=== PATIENT | male | born 1985 | race Caucasian/White ===

== ENCOUNTER → 2016-12-09 | Outpatient (CLI) | payer OTHER ==
[~2016-12-09] MED LIST: 1-ME1LIQ PO; ADDE20XR PO; INDO25 PO; PERC5TAB12 PO; PRED20 PO; RITA20TA PO; XALA0.00 EACH EYE
[2016-12-09 13:10] LABS: MEAN CELL VOLUME 90.9 FL (80.0-100.0); MEAN CORPUSCULAR HEMOGLOBIN 31.7 PG (27.0-34.0); MEAN CORPUSCULAR HGB CONC 34.8 % (32.0-36.0); PLATELET COUNT 230 TH/MM3 (150-450); RED BLOOD COUNT 4.94 MIL/MM3 (4.50-5.90); REVIEW FLAG FINAL; WHITE BLOOD COUNT 9.6 TH/MM3 (4.0-11.0)
[2016-12-09 13:32] LABS: WESTERGREN SEDIMENTATION RATE 2 mm/hr (0-15)
[2016-12-09 13:46] LABS: RHEUMATOID FACTOR TRIGGER LESS THAN 10.0 IU/ML (0.0-14.9)
[2016-12-09 13:50] LABS: ALKALINE PHOSPHATASE 93 U/L (45-117); ALT (GPT) 62 U/L (12-78); ANION GAP 8 MEQ/L (5-15); AST (GOT) 28 U/L (15-37); BICARBONATE 27.7 MEQ/L (21.0-32.0); BLOOD UREA NITROGEN 8 MG/DL (7-18); CHLORIDE 103 MEQ/L (98-107); GLOMERULAR FILTRATION RATE 93 ML/MIN (>89); GLUCOSE,FASTING 81 MG/DL (74-99); SODIUM (NA) 139 MEQ/L (136-145); TOTAL BILIRUBIN ADULT 0.7 MG/DL (0.2-1.0)
[2016-12-09 13:57] LABS: CREATINE KINASE 100 U/L (39-308)
[2016-12-09 14:37] LABS: URIC ACID 6.3 MG/DL (2.6-7.2)
[2016-12-12 11:50] LABS: SM(SMITH) IGG AUTOANTIBODIES ND AI (<1.0 NEGATIVE)
[2016-12-13 13:54] LABS: ANA IFA TITER ND titer (()); ANA SER QL NEGATIVE (NEGATIVE); SJOGRENS AB SSA <1.0 NEG AI (<1.0 NEGATIVE); SJOGRENS AB SSB <1.0 NEG AI (<1.0 NEGATIVE)
[2016-12-14 03:51] LABS: DS DNA AB(CRITHIDIA) NEGATIVE (NEGATIVE); DS DNA AB(CRITHIDIA)TITER ND (<1:10); RHEUMATOID FACTOR 7 IU/mL (<14)
== END ==
LOC: CLAB 12:24
PROVIDERS: ATTEND Allergy & Immunology
DX: M25.50 Pain in unspecified joint (principal); R74.8 Abnormal levels of other serum enzymes
CPT/HCPCS: 36415; 80053; 82085; 82550; 84443; 84550; 85027; 85652; 86038; 86039; 86140; 86147; 86200; 86235; 86255; 86256; 86430; 86431; 86803; 87340

== ENCOUNTER → 2017-04-05 | Outpatient (CLI) | payer OTHER ==
[2017-04-05 11:57] LABS: AUTOMATED NEUTROPHIL # 4.6 TH/MM3 (1.8-7.7); BASOPHIL % 0.6 % (0.0-2.0); EOSINOPHIL # 0.1 TH/MM3 (0-0.4); EOSINOPHIL % 1.7 % (0.0-4.0); HEMATOCRIT 42.8 % (39.0-51.0); HEMO FLAGS DIFF FINAL; LYMPHOCYTE # 1.6 TH/MM3 (1.0-4.8); MEAN CELL VOLUME 91.1 FL (80.0-100.0); MEAN CORPUSCULAR HEMOGLOBIN 31.8 PG (27.0-34.0); MEAN CORPUSCULAR HGB CONC 34.9 % (32.0-36.0); MONO % 9.5 % (0.0-8.0); NEUT % 65.2 % (16.0-70.0); PLATELET COUNT 224 TH/MM3 (150-450); RED CELL DISTRIBUTION WIDTH 13.6 % (11.6-17.2); WHITE BLOOD COUNT 7.1 TH/MM3 (4.0-11.0)
[2017-04-05 12:10] LABS: ALKALINE PHOSPHATASE 86 U/L (45-117); HDL CHOLESTEROL 33.1 MG/DL (40.0-60.0); TOTAL BILIRUBIN ADULT 0.8 MG/DL (0.2-1.0)
[2017-04-05 12:12] LABS: ALT (GPT) 52 U/L (12-78); ANION GAP 8 MEQ/L (5-15); AST (GOT) 35 U/L (15-37); BICARBONATE 28.2 MEQ/L (21.0-32.0); BLOOD UREA NITROGEN 10 MG/DL (7-18); CHLORIDE 104 MEQ/L (98-107); GLOMERULAR FILTRATION RATE 90 ML/MIN (>89); GLUCOSE,FASTING 91 MG/DL (74-99); LDL CHOLESTEROL 113 MG/DL (0-99); POTASSIUM 3.9 MEQ/L (3.5-5.1); SODIUM (NA) 140 MEQ/L (136-145)
== END ==
LOC: CLAB 11:23
PROVIDERS: ATTEND Allergy & Immunology
DX: I10 Essential (primary) hypertension (principal); E78.2 Mixed hyperlipidemia; Z79.899 Other long term (current) drug therapy
CPT/HCPCS: 36415; 80053; 80061; 85025

== ENCOUNTER → 2017-06-16 | Outpatient (CLI) | payer OTHER ==
[~2017-06-16] MED LIST changes: +ALLO300T2 PO; +BENZ100 PO; +LEVO500T8 PO; +LOSA50TA PO; +METH40CA4 PO; +OSEL75 PO; +SULF500T3 PO; +TRIA37.5 PO
[2017-06-16 12:43] LABS: AUTOMATED NEUTROPHIL # 4.2 TH/MM3 (1.8-7.7); BASOPHIL % 0.4 % (0.0-2.0); EOSINOPHIL # 0.1 TH/MM3 (0-0.4); EOSINOPHIL % 1.6 % (0.0-4.0); HEMO FLAGS DIFF FINAL; LYMPH % 15.9 % (9.0-44.0); MEAN CELL VOLUME 93.1 FL (80.0-100.0); MEAN CORPUSCULAR HEMOGLOBIN 31.8 PG (27.0-34.0); MEAN CORPUSCULAR HGB CONC 34.1 % (32.0-36.0); NEUT % 70.1 % (16.0-70.0); PLATELET COUNT 191 TH/MM3 (150-450); RED BLOOD COUNT 4.84 MIL/MM3 (4.50-5.90); RED CELL DISTRIBUTION WIDTH 13.8 % (11.6-17.2)
[2017-06-16 12:47] LABS: BLOOD, URINE NEG (NEG); COMMENT (UR) CULT NOT INDICATED; CULTURE IF INDICATED CULT NOT INDICATED; GLUCOSE,URINE NEG (NEG); KETONE, URINE NEG (NEG); MUCUS URINE FEW /lpf (OCC); NITRITE,URINE NEG (NEG); SQUAMOUS EPITHELIAL CELL URINE <1 /hpf (0-5); URINE COLOR DARK-YELLOW (YELLW/STRAW)
[2017-06-16 13:07] LABS: ALT (GPT) 49 U/L (12-78); URIC ACID 6.5 MG/DL (2.6-7.2)
[2017-06-16 13:08] LABS: HDL CHOLESTEROL 30.7 MG/DL (40.0-60.0)
[2017-06-16 13:17] LABS: ALKALINE PHOSPHATASE 102 U/L (45-117); ANION GAP 5 MEQ/L (5-15); AST (GOT) 26 U/L (15-37); BICARBONATE 31.4 MEQ/L (21.0-32.0); BLOOD UREA NITROGEN 10 MG/DL (7-18); CHLORIDE 101 MEQ/L (98-107); GLOMERULAR FILTRATION RATE 81 ML/MIN (>89); GLUCOSE,FASTING 81 MG/DL (74-99); SODIUM (NA) 137 MEQ/L (136-145); TOTAL BILIRUBIN ADULT 0.9 MG/DL (0.2-1.0)
[2017-06-16 13:19] LABS: POTASSIUM 4.2 MEQ/L (3.5-5.1)
[2017-06-16 13:20] LABS: CREATINE KINASE 88 U/L (39-308)
== END ==
LOC: CLAB 12:06
PROVIDERS: ATTEND Family Medicine
DX: R35.0 Frequency of micturition (principal); M10.9 Gout, unspecified; I10 Essential (primary) hypertension; E78.2 Mixed hyperlipidemia; F90.0 Attention-deficit hyperactivity disorder, predominantly inattentive type
CPT/HCPCS: 36415; 80053; 80061; 81001; 82550; 84550; 85025

== ENCOUNTER 2017-06-18 22:52 | Emergency (ER) | payer OTHER ==
[~2017-06-18] VITALS: Ht 170.2 cm; Wt 107.0 kg
[~2017-06-18 22:52] MED LIST changes: -ALLO300T2 PO; -BENZ100 PO; -LEVO500T8 PO; -LOSA50TA PO; -METH40CA4 PO; -OSEL75 PO; -SULF500T3 PO; -TRIA37.5 PO
[2017-06-18 22:55] VITALS: BP 138/87; PULSE 118; RESP 16; TEMP 99; O2SAT 96
[2017-06-18] MEDS ORDERED: LOSA50TA PO (23:36)
[2017-06-18] MEDS ORDERED: METH40CA4 PO (23:36)
[2017-06-18] MEDS ORDERED: TRIA37.5 PO (23:36)
[2017-06-18] MEDS ORDERED: SULF500T3 PO (23:36)
[2017-06-18] MEDS ORDERED: ALLO300T2 PO (23:36)
--- NOTE | 2017-06-19 00:11 | PD ---
HPI Chief Complaint: Fever Time Seen by Provider: 00:00 Travel History International Travel<30 days: No Contact w/Intl Traveler<30days: No Traveled to known affect area: No History of Present Illness HPI 32-year-old male complains of fever and joint pain. Patient states the symptoms started about 36 hours ago. Patient states that the fever up to 104 at home. Patient has been taking Aleve and Tylenol for Nancy. Patient denies any leg. Patient denies any visual change. Patient denies earache. Patient denies any sore throat. Patient denies any coughing congestion. Patient denies any chest pain or shortness of breath. Patient denies abdominal pain. Patient denies any nausea vomiting diarrhea. Patient denies any dysuria or frequency. Patient states that he has been sweating all day today. PFSH Past Medical History Arthritis: Yes Gout: Yes Hypertension: Yes Social History Alcohol Use: No Tobacco Use: No Substance Use: No Allergies-Medications (Allergen,Severity, Reaction): Coded Allergies: No Known Allergies (Unverified , 06/18/17) Reported Meds & Prescriptions Reported Meds & Active Scripts Active Reported Sulfasalazine 500 Mg Tab 500 Mg PO BID Allopurinol 300 Mg Tab 300 Mg PO DAILY Triamterene-Hydrochlorothiazide 37.5-25 Mg Tab 1 Tab PO DAILY Losartan (Losartan Potassium) 50 Mg Tab 50 Mg PO DAILY Methylphenidate CD 24 HR (Methylphenidate HCl) 40 Mg Capcr 40 Mg PO DAILY Review of Systems General / Constitutional: Positive: Fever Eyes: No: Visual changes HENT: No: Headaches Cardiovascular: No: Chest Pain or Discomfort Respiratory: No: Shortness of Breath Gastrointestinal: No: Abdominal Pain Genitourinary: No: Dysuria Musculoskeletal: Positive: Pain Skin: No Rash Neurologic: No: Weakness Psychiatric: No: Depression Endocrine: No: Polydipsia Hematologic/Lymphatic: No: Easy Bruising Physical Exam Narrative GENERAL: Well-nourished, well-developed patient. SKIN: Focused skin assessment warm/dry. HEAD: Normocephalic. EYES: No scleral icterus. No injection or drainage. TM: Clear. Throat: Nonerythematous. NECK: Supple, trachea midline. No JVD or lymphadenopathy. No meningismus CARDIOVASCULAR: Regular rate and rhythm without murmurs, gallops, or rubs. RESPIRATORY: Breath sounds equal bilaterally. No accessory muscle use. GASTROINTESTINAL: Abdomen soft, non-tender, nondistended. MUSCULOSKELETAL: No cyanosis, or edema. BACK: Nontender without obvious deformity. No CVA tenderness. Data Data Last Documented VS Vital Signs Date Time Temp Pulse Resp B/P (MAP) Pulse Ox O2 Delivery O2 Flow Rate FiO2 06/18/17 22:55 99.0 118 16 138/87 (104) 96 Room Air Orders Orders Complete Blood Count With Diff (06/19/17 00:05) Comprehensive Metabolic Panel (06/19/17 00:05) Urinalysis - C+S If Indicated (06/19/17 00:05) Influenzae A/B Antigen (06/19/17 00:05) Chest, Single Ap (06/19/17 00:05) Iv Access Insert/Monitor (06/19/17 00:05) Ecg Monitoring (06/19/17 00:05) Oximetry (06/19/17 00:05) Sodium Chlor 0.9% 1000 Ml Inj (Ns 1000 M (06/19/17 00:15) Ketorolac Inj (Toradol Inj) (06/19/17 00:15) Labs Laboratory Tests Test 06/19/17 00:03 White Blood Count 4.3 TH/MM3 Red Blood Count 5.01 MIL/MM3 Hemoglobin 15.7 GM/DL Hematocrit 46.7 % Mean Corpuscular Volume 93.3 FL Mean Corpuscular Hemoglobin 31.3 PG Mean Corpuscular Hemoglobin Concent 33.6 % Red Cell Distribution Width 13.7 % Platelet Count 124 TH/MM3 Mean Platelet Volume 10.1 FL Neutrophils (%) (Auto) 76.5 % Lymphocytes (%) (Auto) 11.9 % Monocytes (%) (Auto) 11.3 % Eosinophils (%) (Auto) 0.0 % Basophils (%) (Auto) 0.3 % Neutrophils # (Auto) 3.3 TH/MM3 Lymphocytes # (Auto) 0.5 TH/MM3 Monocytes # (Auto) 0.5 TH/MM3 Eosinophils # (Auto) 0.0 TH/MM3 Basophils # (Auto) 0.0 TH/MM3 CBC Comment DIFF FINAL Differential Comment Blood Urea Nitrogen 14 MG/DL Creatinine 1.50 MG/DL Random Glucose 118 MG/DL Total Protein 8.1 GM/DL Albumin 4.7 GM/DL Calcium Level 9.5 MG/DL Alkaline Phosphatase 97 U/L Aspartate Amino Transf (AST/SGOT) 43 U/L Alanine Aminotransferase (ALT/SGPT) 56 U/L Total Bilirubin 0.9 MG/DL Sodium Level 137 MEQ/L Potassium Level 3.7 MEQ/L Chloride Level 101 MEQ/L Carbon Dioxide Level 26.4 MEQ/L Anion Gap 10 MEQ/L Estimat Glomerular Filtration Rate 54 ML/MIN MDM Medical Decision Making Medical Screen Exam Complete: Yes Emergency Medical Condition: Yes Interpretation(s) Last Impressions Chest X-Ray 06/19/17 0005 Signed Impressions: Service Date/Time: Monday, June 19, 2017 00:19 - CONCLUSION: 1. Minimal basilar atelectasis. No focal consolidation. Tim Foster MD 1:20 AM. CBC within normal limit. Platelet 124. WBC 4.3. 76 neutrophil. Influenza AB antigen negative. Differential Diagnosis Differential diagnosis including viral syndrome, pneumonia, UTI, sepsis. Narrative Course 32-year-old male with fever and joint pain. Normal saline solution 1 L IV bolus. Toradol 30 mg IV. Diagnosis Primary Impression: Viral syndrome Patient Instructions: General Instructions Additional Instructions: Tylenol for fever. Ibuprofen for aching pain. Follow-up with personal physician. Return if persistent problem or worse. Med/Other Pt SpecificInfo: No Change to Meds Disposition: 01 DISCHARGE HOME Condition: Stable Kirit Matamoros MD Jun 19, 2017 00:11
[2017-06-19] MEDS ORDERED: KETOROLAC TROMETHAMINE 30 MG/ML (IVP) VIAL IV PUSH ONE (00:15)
[2017-06-19] MEDS ORDERED: SODIUM CHLOR 0.9% 1000 ML INJ 1,000 ML IV ONE (00:15)
[2017-06-19 00:25] LABS: AUTOMATED NEUTROPHIL # 3.3 TH/MM3 (1.8-7.7); BASOPHIL % 0.3 % (0.0-2.0); HEMATOCRIT 46.7 % (39.0-51.0); HEMO FLAGS DIFF FINAL; LYMPH % 11.9 % (9.0-44.0); LYMPHOCYTE # 0.5 TH/MM3 (1.0-4.8); MEAN CELL VOLUME 93.3 FL (80.0-100.0); MEAN CORPUSCULAR HEMOGLOBIN 31.3 PG (27.0-34.0); MEAN CORPUSCULAR HGB CONC 33.6 % (32.0-36.0); MONO % 11.3 % (0.0-8.0); NEUT % 76.5 % (16.0-70.0); PLATELET COUNT 124 TH/MM3 (150-450); RED BLOOD COUNT 5.01 MIL/MM3 (4.50-5.90); RED CELL DISTRIBUTION WIDTH 13.7 % (11.6-17.2); WHITE BLOOD COUNT 4.3 TH/MM3 (4.0-11.0)
[2017-06-19 00:45] LABS: ALT (GPT) 56 U/L (12-78)
[2017-06-19 00:47] LABS: ALKALINE PHOSPHATASE 97 U/L (45-117); TOTAL BILIRUBIN ADULT 0.9 MG/DL (0.2-1.0)
--- NOTE | 2017-06-19 00:48 | RADRPT ---
EXAM DATE/TIME: 06/19/2017 00:19 [facility] COMPARISON: No previous studies available for comparison. INDICATIONS : Fever and weakness MEDICAL HISTORY : None. SURGICAL HISTORY : None. ENCOUNTER: Initial ACUITY: 1 day PAIN SCORE: 5/10 LOCATION: Bilateral chest FINDINGS: A single view of the chest demonstrates the lungs to be symmetrically aerated without evidence of mas s, infiltrate or effusion. Minimal basilar atelectasis. The cardiomediastinal contours are unremarkab le. Osseous structures are intact. CONCLUSION: 1. Minimal basilar atelectasis. No focal consolidation. Tim Foster MD on June 19, 2017 at 0:45 Board Certified Radiologist. This report was verified electronically.
[2017-06-19 01:30] LABS: ANION GAP 10 MEQ/L (5-15); AST (GOT) 43 U/L (15-37); BICARBONATE 26.4 MEQ/L (21.0-32.0); BLOOD UREA NITROGEN 14 MG/DL (7-18); CHLORIDE 101 MEQ/L (98-107); GLOMERULAR FILTRATION RATE 54 ML/MIN (>89); SODIUM (NA) 137 MEQ/L (136-145)
[2017-06-19 01:41] LABS: POTASSIUM 3.7 MEQ/L (3.5-5.1)
== END 2017-06-19 02:00 | disposition home or self-care (01) ==
LOC: NEPC 22:52
DX: B34.9 Viral infection, unspecified (principal); I10 Essential (primary) hypertension; M25.50 Pain in unspecified joint
CPT/HCPCS: 71010; 80053; 85025; 87804; 96374; 99284; J1885; J7030

== ENCOUNTER 2017-06-23 02:54 | Inpatient (IN) | payer OTHER ==
[~2017-06-23] VITALS: Ht 170.2 cm; Wt 106.0 kg
[2017-06-23] VITALS (12 sets, daily range): BP systolic 113–142; BP diastolic 55–76; PULSE 99–125; RESP 17–22; TEMP 97.7–103; O2SAT 96–100
[~2017-06-23 02:54] MED LIST changes: -1-ME1LIQ PO; -ADDE20XR PO; +ALLO300T2 PO; -INDO25 PO; +LOSA50TA PO; +METH40CA4 PO; -PERC5TAB12 PO; -PRED20 PO; -RITA20TA PO; +SULF500T3 PO; +TRIA37.5 PO; -XALA0.00 EACH EYE
[2017-06-23] MEDS ORDERED: LEVO500T8 PO (03:17)
[2017-06-23] MEDS ORDERED: SULF500T3 PO (03:17)
[2017-06-23] MEDS ORDERED: OSEL75 PO (03:17)
[2017-06-23] MEDS ORDERED: PIPERACIL-TAZO 4.5 GM PREMIX 100 ML IV ONE (03:45)
[2017-06-23] MEDS ORDERED: SODIUM CHLOR 0.9% 1000 ML INJ 1,000 ML IV ONE ×2 (03:45)
[2017-06-23] MEDS ORDERED: VANCOMYCIN INJ 1,250 MG in SODIUM CHLOR 0.9% 250 ML INJ 250 ML IV ONE (03:45)
[2017-06-23] MEDS ORDERED: ACETAMINOPHEN 500 MG CPLT PO ONE (03:45)
--- NOTE | 2017-06-23 03:49 | PD ---
HPI Chief Complaint: Fever Time Seen by Provider: 03:39 Travel History International Travel<30 days: No Contact w/Intl Traveler<30days: No Traveled to known affect area: No History of Present Illness HPI 32-year-old male presents to the emergency department by private transportation the care of his mother for evaluation of fever. Patient states approximately 6 days ago he started noticing fever and chills. Patient states he felt well 7 days ago except for some mild sinus pressure. Patient was seen in the emergency department and diagnosed with a viral syndrome and told to take over- the-counter medications for symptomatic relief. Patient states he continued to have symptoms so he went to urgent care and was diagnosed with a possible upper respiratory infection. Patient was placed on Levaquin and took 2 days of Levaquin symptoms have persisted and continues to have fever. Patient denies headache visual disturbance mild sinus pressure no sore throat or drainage no earache no neck pain no neck stiffness no shortness of breath no chest pain no productive cough no wheezing mild nausea no vomiting no abdominal pain no diarrhea no dysuria no frequency no urgency no hematuria no skin rash no joint pain and no joint swelling. The patient rates his pain 0/10 in intensity. Patient does have a history of rheumatoid arthritis and was on sulfasalazine and was told to discontinue this medication as it may be responsible for his temperature elevation. Patient has not been taking sulfasalazine. Patient also has history of gouty arthritis and hypertension. No other family members are similar symptoms. Patient's last acetaminophen was at 8 PM last evening. PFSH Past Medical History Narrative Medical Rheumatoid arthritis, gouty arthritis, hypertension; no tobacco use alcohol use or substance use; nursing notes reviewed Arthritis: Yes (RA) Diminished Hearing: No Gout: Yes Hypertension: Yes Tetanus Vaccination: Unknown Social History Alcohol Use: No Tobacco Use: No Substance Use: No Allergies-Medications (Allergen,Severity, Reaction): Coded Allergies: No Known Allergies (Unverified , 06/21/17) Reported Meds & Prescriptions Reported Meds & Active Scripts Active Reported Levofloxacin 500 Mg Tablet 500 Mg PO DAILY Tamiflu (Oseltamivir Phosphate) 75 Mg Cap 75 Mg PO BID Sulfasalazine 500 Mg Tab 1,000 Mg PO BID Allopurinol 300 Mg Tab 300 Mg PO DAILY Triamterene-Hydrochlorothiazide 37.5-25 Mg Tab 1 Tab PO DAILY Losartan (Losartan Potassium) 50 Mg Tab 50 Mg PO DAILY Methylphenidate CD 24 HR (Methylphenidate HCl) 40 Mg Capcr 40 Mg PO DAILY Review of Systems Except as stated in HPI: all other systems reviewed are Neg General / Constitutional: Positive: Fever, Chills HENT: Positive: Congestion, No: Headaches, Lightheadedness, Sore Throat, Rhinorrhea Cardiovascular: No: Chest Pain or Discomfort, Palpitations, Diaphoresis Respiratory: No: Cough, Shortness of Breath, Wheezing Gastrointestinal: Positive: Nausea, No: Vomiting, Diarrhea, Abdominal Pain Genitourinary: No: Urgency, Frequency, Dysuria, Flank Pain Musculoskeletal: No: Myalgias, Arthralgias Skin: No Rash Neurologic: No: Weakness, Dizziness, Syncope, Focal Abnormalities, Coordination Problem Psychiatric: No: Anxiety Endocrine: No: Heat Intolerance Hematologic/Lymphatic: No: Easy Bruising Physical Exam Narrative GENERAL: Well developed well-nourished male in no acute distress no respiratory distress; GCS 15 no stridor or hoarseness SKIN: Warm and dry. No rash. HEAD: Normocephalic. EYES: No scleral icterus. No injection or drainage. ENT: Mucous membranes moist airway is patent sinuses nontender tympanic membranes no redness dullness or loss of landmarks. NECK: Supple, trachea midline. No JVD or lymphadenopathy. No meningismus no nuchal rigidity. CARDIOVASCULAR: Increased Regular rate and rhythm without murmurs, gallops, or rubs. RESPIRATORY: Breath sounds equal bilaterally. No accessory muscle use. GASTROINTESTINAL: Abdomen soft, non-tender, nondistended. Nontender no guarding no rebound. MUSCULOSKELETAL: No cyanosis, or edema. BACK: Nontender without obvious deformity. No CVA tenderness. Data Data Last Documented VS Vital Signs Date Time Temp Pulse Resp B/P (MAP) Pulse Ox O2 Delivery O2 Flow Rate FiO2 06/23/17 06:46 100 18 118/56 (76) 96 Room Air 06/23/17 05:47 99.8 Orders Orders Electrocardiogram (06/23/17 03:39) Complete Blood Count With Diff (06/23/17 03:39) Comprehensive Metabolic Panel (06/23/17 03:39) Lactic Acid Sepsis Protocol (06/23/17 03:39) Lipase (06/23/17 03:39) Urinalysis - C+S If Indicated (06/23/17 03:39) Blood Culture (06/23/17 03:39) Chest, Single Ap (06/23/17 03:39) Blood Glucose (06/23/17 03:39) Ecg Monitoring (06/23/17 03:39) Iv Access Insert/Monitor (06/23/17 03:39) Oximetry (06/23/17 03:39) Oxygen Administration (06/23/17 03:39) Piperacil-Tazo 4.5 Gm Premix (Zosyn 4.5 (06/23/17 03:45) Vancomycin Inj (Vancomycin Inj) (06/23/17 03:45) Sodium Chlor 0.9% 1000 Ml Inj (Ns 1000 M (06/23/17 03:45) Sodium Chlor 0.9% 1000 Ml Inj (Ns 1000 M (06/23/17 03:45) Acetaminophen (Tylenol) (06/23/17 03:45) Ct Abd/Pel W Iv Contrast(Rout) (06/23/17 ) Potassium Chloride (Kcl) (06/23/17 06:45) ^ Saline Lock (06/23/17 06:46) Resp Oxygen Will C Titrat 1-4 L (06/23/17 ) Notify Dr: Other (06/23/17 06:46) Sodium Chloride 0.9% Flush (Ns Flush) (06/23/17 09:00) Sodium Chloride 0.9% Flush (Ns Flush) (06/23/17 07:00) Admit Order (Ed Use Only) (06/23/17 ) Labs Laboratory Tests Test 06/23/17 03:50 06/23/17 05:15 White Blood Count 3.8 TH/MM3 Red Blood Count 4.09 MIL/MM3 Hemoglobin 12.9 GM/DL Hematocrit 37.9 % Mean Corpuscular Volume 92.5 FL Mean Corpuscular Hemoglobin 31.6 PG Mean Corpuscular Hemoglobin Concent 34.1 % Red Cell Distribution Width 14.0 % Platelet Count 56 TH/MM3 Mean Platelet Volume 11.6 FL Neutrophils (%) (Auto) 64.3 % Lymphocytes (%) (Auto) 22.2 % Monocytes (%) (Auto) 13.2 % Eosinophils (%) (Auto) 0.1 % Basophils (%) (Auto) 0.2 % Neutrophils # (Auto) 2.4 TH/MM3 Lymphocytes # (Auto) 0.8 TH/MM3 Monocytes # (Auto) 0.5 TH/MM3 Eosinophils # (Auto) 0.0 TH/MM3 Basophils # (Auto) 0.0 TH/MM3 CBC Comment AUTO DIFF Differential Total Cells Counted 100 Neutrophils % (Manual) 57 % Band Neutrophils % 23 % Lymphocytes % 14 % Monocytes % 6 % Neutrophils # (Manual) 3.0 TH/MM3 Nucleated Red Blood Cells 1 /100 WBC Differential Comment FINAL DIFF MANUAL Atypical Lymphocytes % Platelet Estimate LOW Platelet Morphology Comment NORMAL Red Cell Morphology Comment NORMAL Blood Urea Nitrogen 14 MG/DL Creatinine 1.06 MG/DL Random Glucose 102 MG/DL Total Protein 6.6 GM/DL Albumin 3.4 GM/DL Calcium Level 8.2 MG/DL Alkaline Phosphatase 161 U/L Aspartate Amino Transf (AST/SGOT) 99 U/L Alanine Aminotransferase (ALT/SGPT) 139 U/L Total Bilirubin 1.5 MG/DL Sodium Level 135 MEQ/L Potassium Level 3.4 MEQ/L Chloride Level 103 MEQ/L Carbon Dioxide Level 24.6 MEQ/L Anion Gap 7 MEQ/L Estimat Glomerular Filtration Rate 80 ML/MIN Lactic Acid Level 1.4 mmol/L Lipase 105 U/L Urine Color DARK-YELLOW Urine Turbidity CLEAR Urine pH 6.0 Urine Specific [place] 1.033 Urine Protein TRACE mg/dL Urine Glucose (UA) NEG mg/dL Urine Ketones 10 mg/dL Urine Occult Blood SMALL Urine Nitrite NEG Urine Bilirubin NEG Urine Urobilinogen 4.0 MG/DL Urine Leukocyte Esterase NEG Urine RBC 14 /hpf Urine WBC 1 /hpf Urine Squamous Epithelial Cells <1 /hpf Urine Mucus FEW /lpf Microscopic Urinalysis Comment CATH-CULT NOT IND MDM Medical Decision Making Medical Screen Exam Complete: Yes Emergency Medical Condition: Yes Medical Record Reviewed: Yes Interpretation(s) EKG sinus tachycardia rate [address] elevation or injury pattern change nonspecific T-wave changes no ectopy Differential Diagnosis Sepsis urosepsis pneumonia adverse medication reaction Narrative Course 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 IV access obtained specimens collected and sent for resulting patient presumptively administered Zosyn and vancomycin as she has failed outpatient Levaquin antibiotic along with 2 L of normal saline and acetaminophen 1 g Patient resting comfortably defervesced with acetaminophen Patient tolerating presumptive broad-spectrum antibiotic coverage with Zosyn and vancomycin as well as IV fluid bolus Patient resting comfortably voicing no concerns or complaints informed of laboratory tests including 23% bands by CBC with increased heart rate and fever will be admitted for sepsis In view of decreased platelets and mild elevation of LFTs CT abdomen and pelvis ordered for further evaluation of possible or some infection although patient has a nontender abdomen [facility] MD DR Chapa Patient's case discussed with on-call Dr Tan for admission Sepsis Criteria SIRS Criteria (2 or more): Temp > 100.9 or < 96.8, Heart rate over 90 Physician Communication Physician Communication discussed with [facility] Diagnosis Primary Impression: Sepsis Qualified Codes: A41.9 - Sepsis, unspecified organism Additional Impression: Febrile illness, acute Admitting Information Admitting Physician Requests: Admit Carine Galindo MD Jun 23, 2017 03:49
[2017-06-23 04:05] LABS: AUTOMATED NEUTROPHIL # 2.4 TH/MM3 (1.8-7.7); BASOPHIL % 0.2 % (0.0-2.0); EOSINOPHIL % 0.1 % (0.0-4.0); HEMATOCRIT 37.9 % (39.0-51.0); LYMPH % 22.2 % (9.0-44.0); LYMPHOCYTE # 0.8 TH/MM3 (1.0-4.8); MEAN CELL VOLUME 92.5 FL (80.0-100.0); MEAN CORPUSCULAR HEMOGLOBIN 31.6 PG (27.0-34.0); MEAN CORPUSCULAR HGB CONC 34.1 % (32.0-36.0); MONO % 13.2 % (0.0-8.0); NEUT % 64.3 % (16.0-70.0); PLATELET COUNT 56 TH/MM3 (150-450); RED BLOOD COUNT 4.09 MIL/MM3 (4.50-5.90); WHITE BLOOD COUNT 3.8 TH/MM3 (4.0-11.0)
[2017-06-23 04:13] LABS: HEMO FLAGS AUTO DIFF
[2017-06-23 04:34] LABS: ALT (GPT) 139 U/L (12-78); ANION GAP 7 MEQ/L (5-15); AST (GOT) 99 U/L (15-37); BICARBONATE 24.6 MEQ/L (21.0-32.0); BLOOD UREA NITROGEN 14 MG/DL (7-18); CHLORIDE 103 MEQ/L (98-107); GLOMERULAR FILTRATION RATE 80 ML/MIN (>89); POTASSIUM 3.4 MEQ/L (3.5-5.1); SODIUM (NA) 135 MEQ/L (136-145)
[2017-06-23 04:36] LABS: ALKALINE PHOSPHATASE 161 U/L (45-117); TOTAL BILIRUBIN ADULT 1.5 MG/DL (0.2-1.0)
--- NOTE | 2017-06-23 04:36 | RADRPT ---
EXAM DATE/TIME: 06/23/2017 03:51 [facility] COMPARISON: CHEST PA & LAT, June 21, 2017, 14:14. INDICATIONS : Fever MEDICAL HISTORY : Rheumatoid arthritis. Hypertension Occular hypertension, Gout. SURGICAL HISTORY : None. ENCOUNTER: Subsequent ACUITY: 4 - 6 days PAIN SCORE: 5/10 LOCATION: Bilateral chest FINDINGS: A single view of the chest demonstrates the lungs to be symmetrically aerated without evidence of mas s, infiltrate or effusion. The cardiomediastinal contours are unremarkable. Osseous structures are intact. CONCLUSION: No acute disease. Tim Foster MD on June 23, 2017 at 4:35 Board Certified Radiologist. This report was verified electronically.
[2017-06-23 04:56] LABS: BANDS 23 % (0-6); CORRECTED NUCLEATED RBC 1 /100 WBC (0-0); POLYS (SEG NEUTROPHILS) 57 % (16-70); WBC DIFF SAMPLE 100
[2017-06-23 04:57] LABS: SCAN/DIFF FINAL DIFF MANUAL
[2017-06-23 04:58] LABS: PLATELET ESTIMATE SMEAR LOW (NORMAL); PLATELET MORPHOLOGY NORMAL (NORMAL)
[2017-06-23 05:57] LABS: BLOOD, URINE SMALL (NEG); GLUCOSE,URINE NEG (NEG); KETONE, URINE 10 mg/dL (NEG); MUCUS URINE FEW /lpf (OCC); NITRITE,URINE NEG (NEG); SQUAMOUS EPITHELIAL CELL URINE <1 /hpf (0-5); URINE COLOR DARK-YELLOW (YELLW/STRAW)
[2017-06-23 06:00] LABS: COMMENT (UR) CATH-CULT NOT IND; CULTURE IF INDICATED CATH CULTURE NOT IND
[2017-06-23] MEDS ORDERED: POTASSIUM CHLORIDE 20 MEQ CONTROLLED RELEASE TAB PO ONE (06:45)
[2017-06-23] MEDS ORDERED: SODIUM CHLOR 0.9% 1000 ML INJ 1,000 ML IV SCH (06:46)
[2017-06-23] MEDS ORDERED: IOHEXOL 350 MG/ML 10 ML VIAL (for RAD DIAG) IV PUSH ONE (06:49)
[2017-06-23] MEDS ORDERED: SODIUM CHLORIDE 0.9% FLUSH 10 ML FLUSH IV FLUSH PRN ×3 (07:00→09:00)
[2017-06-23] MEDS ORDERED: NALOXONE HCL 0.4 MG/ML AMP IV PUSH PRN ×2 (07:00→09:00)
[2017-06-23] MEDS ORDERED: SODIUM CHLORIDE 0.9% FLUSH 10 ML FLUSH IVF PRN (07:00)
--- NOTE | 2017-06-23 07:13 | RADRPT ---
EXAM DATE/TIME: 06/23/2017 06:48 [facility] COMPARISON: No previous studies available for comparison. INDICATIONS : Abdominal pain with fever x 6 days. IV CONTRAST: 97 cc Omnipaque 350 (iohexol) IV ORAL CONTRAST: No oral contrast ingested. RADIATION DOSE: 25.72 CTDIvol (mGy) ; Patient body habitus MEDICAL HISTORY : Rheumatoid arthritis. SURGICAL HISTORY : Umbilical hernia repair. ENCOUNTER: Initial ACUITY: 4 - 6 days PAIN SCALE: 4/10 LOCATION: Bilateral abdomen TECHNIQUE: Volumetric scanning of the abdomen and pelvis was performed. Using automated exposure control and ad justment of the mA and/or kV according to patient size, radiation dose was kept as low as reasonably achievable to obtain optimal diagnostic quality images. DICOM format image data is available electro nically for review and comparison. FINDINGS: LOWER LUNGS: The visualized lower lungs are clear. LIVER: Homogeneous density without lesion. There is no dilation of the biliary tree. No calcified gallston es. A few small periportal lymph nodes. SPLEEN: Normal size with a wedge-shaped hypodensity in the posterior spleen measuring 2.3 cm across. It is li jahaira benign lesion such as a hemangioma but splenic infarct is in the differential. Infection would b e considerably less likely PANCREAS: Within normal limits. KIDNEYS: Normal in size and shape. There is no mass, stone or hydronephrosis. ADRENAL GLANDS: Within normal limits. VASCULAR: There is no aortic aneurysm. BOWEL/MESENTERY: Mild inflammatory stranding around the second portion of the duodenum . The stomach, and colon demon strate no acute abnormality. There is no free intraperitoneal air or fluid. Numerous small mesenteri c lymph nodes without pathologic enlargement ABDOMINAL WALL: Within normal limits. RETROPERITONEUM: There is no lymphadenopathy. BLADDER: No wall thickening or mass. REPRODUCTIVE: Within normal limits. INGUINAL: There is no lymphadenopathy or hernia. MUSCULOSKELETAL: Within normal limits for patient age. L5 pars defect CONCLUSION: Small hypodensity within the posterior spleen probably of no clinical significance. There are a few t iny mesenteric lymph nodes and one 2.3 x 3.1 cm periportal lymph node. There is some minimal strandi ng around the second part of the duodenum correlate for peptic ulcer disease. No abscess identified Vick Russell MD on June 23, 2017 at 7:08 Board Certified Radiologist. This report was verified electronically.
[2017-06-23] MEDS: SODIUM CHLORIDE 0.9% FLUSH 10 ML FLUSH IV FLUSH SCH ×2 (09:00→20:01)
[2017-06-23] MEDS ORDERED: TEMAZEPAM 15 MG CAP PO PRN (09:00)
[2017-06-23] MEDS ORDERED: BISACODYL 10 MG SUPP RECTAL PRN (09:00)
[2017-06-23] MEDS ORDERED: SODIUM CHLORIDE 0.9% FLUSH 10 ML FLUSH IV FLUSH SCH ×3 (09:00)
[2017-06-23] MEDS ORDERED: ACETAMINOPHEN 325 MG TAB PO PRN ×2 (09:00)
[2017-06-23] MEDS ORDERED: MAGNESIUM HYDROXIDE SUSP 30 ML CUP PO PRN (09:00)
[2017-06-23] MEDS ORDERED: oxyCODONE/ACETAMINOPHEN 10 MG/325 MG TAB PO PRN (09:00)
[2017-06-23] MEDS ORDERED: oxyCODONE/ACETAMINOPHEN 5 MG/325 MG TAB PO PRN (09:00)
[2017-06-23] MEDS ORDERED: LACTULOSE SYRUP 20 GM/30 ML CUP PO PRN (09:00)
[2017-06-23] MEDS ORDERED: SENNOSIDES 8.6 MG TAB PO PRN (09:00)
[2017-06-23] MEDS ORDERED: PROCHLORPERAZINE 25 MG SUPP RECTAL PRN (09:00)
[2017-06-23] MEDS ORDERED: MORPHINE SULFATE 4 MG/ML INJ IV PUSH PRN ×2 (09:00)
[2017-06-23] MEDS ORDERED: ONDANSETRON HCL 4 MG/2 ML VIAL IV PUSH PRN (09:00)
--- NOTE | 2017-06-23 09:05 | HHI.HP ---
HPI Service [facility] Primary Care Physician Víctor Timmons MD Admission Diagnosis sepsis/febrile illness Diagnoses: (1) Sepsis Diagnosis: Principal (2) Febrile illness, acute Diagnosis: Principal (3) Fever and chills Diagnosis: Principal (4) Viral syndrome Diagnosis: Principal Chief Complaint: Fevers Travel History International Travel<30 Days: No Contact w/Intl Traveler <30 Da: No Traveled to Known Affected Are: No History of Present Illness 32-year-old male presents to the emergency department by private transportation the care of his mother for evaluation of fever. Patient states approximately 6 days ago he started noticing fever and chills. Patient states he felt well 7 days ago except for some mild sinus pressure. Patient was seen in the emergency department and diagnosed with a viral syndrome and told to take over- the-counter medications for symptomatic relief. Patient states he continued to have symptoms so he went to urgent care and was diagnosed with a possible upper respiratory infection. Patient was placed on Levaquin and took 2 days of Levaquin symptoms have persisted and continues to have fever. Patient denies headache visual disturbance mild sinus pressure no sore throat or drainage no earache no neck pain no neck stiffness no shortness of breath no chest pain no productive cough no wheezing mild nausea no vomiting no abdominal pain no diarrhea no dysuria no frequency no urgency no hematuria no skin rash no joint pain and no joint swelling. The patient rates his pain 0/10 in intensity. Patient does have a history of rheumatoid arthritis and was on sulfasalazine and was told to discontinue this medication as it may be responsible for his temperature elevation. Patient has not been taking sulfasalazine. Patient also has history of gouty arthritis and hypertension. No other family members are similar symptoms. Patient's last acetaminophen was at 8 PM last evening. Was seen in the emergency department and of course recommended admission started on vancomycin and Zosyn Review of Systems Constitutional: COMPLAINS OF: Diaphoretic episodes, Fatigue, Fever, Chills, DENIES: Weight gain, Weight loss, Dizziness, Change in appetite Endocrine: DENIES: Heat/cold intolerance, Polydipsia, Polyuria, Polyphagia Eyes: DENIES: Blurred vision, Diplopia, Eye inflammation, Eye pain, Vision loss Ears, nose, mouth, throat: DENIES: Tinnitus, Hearing loss, Vertigo, Nasal discharge, Oral lesions, Throat pain, Hoarseness Respiratory: COMPLAINS OF: Cough, Shortness of breath, DENIES: Apneas, Snoring , Wheezing, Hemoptysis Cardiovascular: DENIES: Chest pain, Palpitations, Syncope, Dyspnea on Exertion , PND Gastrointestinal: DENIES: Abdominal pain, Black stools, Bloody stools, Constipation Genitourinary: DENIES: Sexual dysfunction, Urinary frequency, Urinary incontinence Musculoskeletal: COMPLAINS OF: Joint pain, Muscle aches, DENIES: Stiffness, Joint Swelling Integumentary: DENIES: Abnormal pigmentation, Nail changes Hematologic/lymphatic: DENIES: Bruising, Lymphadenopathy Immunologic/allergic: DENIES: Eczema, Urticaria Neurologic: DENIES: Abnormal gait, Headache, Localized weakness Psychiatric: DENIES: Anxiety, Confusion, Mood changes, Depression Past Family Social History Past Medical History Rheumatoid arthritis Gouty arthritis Hypertension Past Surgical History Left elbow cortisone injection Radiofrequency ablation to lower lumbar Reported Medications Reported Meds & Active Scripts Active Reported Levofloxacin 500 Mg Tablet 500 Mg PO DAILY Tamiflu (Oseltamivir Phosphate) 75 Mg Cap 75 Mg PO BID Sulfasalazine 500 Mg Tab 1,000 Mg PO BID Allopurinol 300 Mg Tab 300 Mg PO DAILY Triamterene-Hydrochlorothiazide 37.5-25 Mg Tab 1 Tab PO DAILY Losartan (Losartan Potassium) 50 Mg Tab 50 Mg PO DAILY Methylphenidate CD 24 HR (Methylphenidate HCl) 40 Mg Capcr 40 Mg PO DAILY Allergies: Coded Allergies: No Known Allergies (Unverified , 06/21/17) Active Ordered Medications Current Medications Piperacillin Sod/ Tazobactam Sod 100 ml @ 200 mls/hr ONCE ONCE IV Last administered on 06/23/17 04:22; Start 06/23/17 at 03:45; Stop 06/23/17 at 04:14 ; Status DC Vancomycin HCl 1250 mg/Sodium Chloride 262.5 ml @ 262.5 mls/ hr ONCE ONCE IV Last administered on 06/23/17 04:54; Start 06/23/17 at 03:45; Stop 06/23/17 at 04:44; Status DC Sodium Chloride 1,000 ml @ 999 mls/hr BOLUS ONCE IV Last administered on 06/23 03:53; Start 06/23/17 at 03:45; Stop 06/23/17 at 04:45; Status DC Sodium Chloride 1,000 ml @ 999 mls/hr BOLUS ONCE IV Last administered on 06/23 04:22; Start 06/23/17 at 03:45; Stop 06/23/17 at 04:45; Status DC Acetaminophen (Tylenol) 1,000 mg ONCE ONCE PO Last administered on 06/23/17 04:22; Start 06/23/17 at 03:45; Stop 06/23/17 at 03:50; Status DC Potassium Chloride (KCl) 40 meq ONCE ONCE PO Last administered on 06/23/17 07 :16; Start 06/23/17 at 06:45; Stop 06/23/17 at 06:46; Status DC Sodium Chloride (NS Flush) 2 ml BID IV FLUSH ; Start 06/23/17 at 09:00; Stop at 09:00; Status DC Sodium Chloride (NS Flush) 2 ml UNSCH PRN IVF FLUSH AFTER USING IV ACCESS; Start 06/23/17 at 07:00; Stop 06/23/17 at 07:00; Status DC Sodium Chloride 1,000 ml @ 100 mls/hr Q10H IV Last administered on 06/23/17 07:17; Start 06/23/17 at 06:46 Sodium Chloride (NS Flush) 2 ml UNSCH PRN IV FLUSH FLUSH AFTER USING IV ACCESS ; Start 06/23/17 at 07:00 Sodium Chloride (NS Flush) 2 ml BID IV FLUSH ; Start 06/23/17 at 09:00 Naloxone HCl (Narcan Inj) 0.4 mg UNSCH PRN IV PUSH SEE LABEL COMMENTS; Start at 07:00 Iohexol (Omnipaque 350 Inj) 97 ml STK-MED ONCE IV PUSH Last administered on 06:49; Start 06/23/17 at 06:49; Stop 06/23/17 at 06:50; Status DC Family History Hypertension Social History Denies any tobacco alcohol or illicits Physical Exam Vital Signs Vital Signs Date Time Temp Pulse Resp B/P (MAP) Pulse Ox O2 Delivery O2 Flow Rate FiO2 06/23/17 07:10 98 17 100 Room Air 06/23/17 07:10 99.1 99 17 116/64 (81) 100 Room Air 06/23/17 06:46 100 18 118/56 (76) 96 Room Air 06/23/17 05:47 99.8 100 18 117/58 (77) 99 Room Air 06/23/17 04:23 111 18 113/59 (77) 96 Room Air 06/23/17 03:07 98 Room Air 06/23/17 03:07 103.0 125 18 113/55 (74) 98 Room Air Physical Exam GENERAL: This is a well-nourished, well-developed patient, in no apparent distress. SKIN: No rashes, ecchymoses or lesions. Cool and dry. HEAD: Atraumatic. Normocephalic. No temporal or scalp tenderness. EYES: Pupils equal round and reactive. Extraocular motions intact. No scleral icterus. No injection or drainage. ENT: Nose without bleeding, purulent drainage or septal hematoma. Throat without erythema, tonsillar hypertrophy or exudate. Uvula midline. Airway patent. NECK: Trachea midline. No JVD or lymphadenopathy. Supple, nontender, no meningeal signs. CARDIOVASCULAR: Regular rate and rhythm without murmurs, gallops, or rubs. S1 and S2 no S3 or S4 no heave or thrill or rub or gallop RESPIRATORY: Clear to auscultation. Breath sounds equal bilaterally. No wheezes , rales, or rhonchi. GASTROINTESTINAL: Abdomen soft, non-tender, nondistended. No hepato-splenomegaly , or palpable masses. No guarding. MUSCULOSKELETAL: Extremities without clubbing, cyanosis, or edema. No joint tenderness, effusion, or edema noted. No calf tenderness. Negative Homans sign bilaterally. NEUROLOGICAL: Awake and alert. Cranial nerves II through XII intact. Motor and sensory grossly within normal limits. Five out of 5 muscle strength in all muscle groups. Normal speech. Insight and judgment is good mood and behaviors appropriate Laboratory Laboratory Tests Test 06/23/17 03:50 06/23/17 05:15 06/23/17 07:51 White Blood Count 3.8 Red Blood Count 4.09 Hemoglobin 12.9 Hematocrit 37.9 Mean Corpuscular Volume 92.5 Mean Corpuscular Hemoglobin 31.6 Mean Corpuscular Hemoglobin Concent 34.1 Red Cell Distribution Width 14.0 Platelet Count 56 Mean Platelet Volume 11.6 Neutrophils (%) (Auto) 64.3 Lymphocytes (%) (Auto) 22.2 Monocytes (%) (Auto) 13.2 Eosinophils (%) (Auto) 0.1 Basophils (%) (Auto) 0.2 Neutrophils # (Auto) 2.4 Lymphocytes # (Auto) 0.8 Monocytes # (Auto) 0.5 Eosinophils # (Auto) 0.0 Basophils # (Auto) 0.0 CBC Comment AUTO DIFF Differential Total Cells Counted 100 Neutrophils % (Manual) 57 Band Neutrophils % 23 Lymphocytes % 14 Monocytes % 6 Neutrophils # (Manual) 3.0 Nucleated Red Blood Cells 1 Differential Comment FINAL DIFF MANUAL Atypical Lymphocytes Platelet Estimate LOW Platelet Morphology Comment NORMAL Red Cell Morphology Comment NORMAL Blood Urea Nitrogen 14 Creatinine 1.06 Random Glucose 102 Total Protein 6.6 Albumin 3.4 Calcium Level 8.2 Alkaline Phosphatase 161 Aspartate Amino Transf (AST/SGOT) 99 Alanine Aminotransferase (ALT/SGPT) 139 Total Bilirubin 1.5 Sodium Level 135 Potassium Level 3.4 Chloride Level 103 Carbon Dioxide Level 24.6 Anion Gap 7 Estimat Glomerular Filtration Rate 80 Lactic Acid Level 1.4 Lipase 105 Urine Color DARK-YELLOW Urine Turbidity CLEAR Urine pH 6.0 Urine Specific Henry 1.033 Urine Protein TRACE Urine Glucose (UA) NEG Urine Ketones 10 Urine Occult Blood SMALL Urine Nitrite NEG Urine Bilirubin NEG Urine Urobilinogen 4.0 Urine Leukocyte Esterase NEG Urine RBC 14 Urine WBC 1 Urine Squamous Epithelial Cells <1 Urine Mucus FEW Microscopic Urinalysis Comment CATH-CULT NOT IND Date/Time Source Procedure Growth Status 06/23/17 03:50 Blood Peripheral Aerobic Blood Culture Pending Received 06/23/17 03:50 Blood Peripheral Anaerobic Blood Culture Pending Received Result Diagram: 06/23/17 0350 06/23/17 0350 Imaging Last Impressions Chest X-Ray 06/23/17 0339 Signed Impressions: Service Date/Time: Friday, June 23, 2017 03:51 - CONCLUSION: No acute disease. Tim Foster MD Abdomen/Pelvis CT 06/23/17 0000 Signed Impressions: Service Date/Time: Friday, June 23, 2017 06:48 - CONCLUSION: Small hypodensity within the posterior spleen probably of no clinical significance. There are a few tiny mesenteric lymph nodes and one 2.3 x 3.1 cm periportal lymph node. There is some minimal stranding around the second part of the duodenum correlate for peptic ulcer disease. No abscess identified MD Elliott Castillo VTE Risk Assessment Caprini VTE Risk Assessment: Mod/High Risk (score >= 2) Caprini Risk Assessment Model Point Value = 1 Point Value = 2 Point Value = 3 Point Value = 5 Age 41-60 Minor surgery BMI > 25 kg/m2 Swollen legs Varicose veins or History of unexplained or recurrent spontaneous Oral contraceptives or hormone replacement Sepsis (< 1 month) Serious lung disease, including pneumonia (< 1 month) Abnormal pulmonary function Acute myocardial infarction Congestive heart failure (< 1 month) History of inflammatory bowel disease Medical patient at bed rest Age 61-74 Arthroscopic surgery Major open surgery (> 45 min) Laparoscopic surgery (> 45 min) Malignancy Confined to bed (> 72 hours) Immobilizing plaster cast Central venous access Age >= 75 History of VTE Family history of VTE Factor V Leiden Prothrombin [id number] Lupus anticoagulant Anticardiolipin antibodies Elevated serum homocysteine Heparin-induced thrombocytopenia Other congenital or acquired thrombophilia Stroke (< 1 month) Elective arthroplasty Hip, pelvis, or leg fracture Acute spinal cord injury (< 1 month) Prophylaxis Regimen Total Risk Factor Score Risk Level Prophylaxis Regimen 0-1 Low Early ambulation 2 Moderate Order ONE of the following: *Sequential Compression Device (SCD) *Heparin 5000 units SQ BID 3-4 Higher Order ONE of the following medications: *Heparin 5000 units SQ TID *Enoxaparin/Lovenox 40 mg SQ daily (WT < 150 kg, CrCl > 30 mL/min) *Enoxaparin/Lovenox 30 mg SQ daily (WT < 150 kg, CrCl > 10-29 mL/min) *Enoxaparin/Lovenox 30 mg SQ BID (WT < 150 kg, CrCl > 30 mL/min) AND/OR *Sequential Compression Device (SCD) 5 or more Highest Order ONE of the following medications: *Heparin 5000 units SQ TID (Preferred with Epidurals) *Enoxaparin/Lovenox 40 mg SQ daily (WT < 150 kg, CrCl > 30 mL/min) *Enoxaparin/Lovenox 30 mg SQ daily (WT < 150 kg, CrCl > 10-29 mL/min) *Enoxaparin/Lovenox 30 mg SQ BID (WT < 150 kg, CrCl > 30 mL/min) AND *Sequential Compression Device (SCD) Assessment and Plan Problem List: (1) Fever and chills ICD Code: R50.9 - Fever, unspecified (2) Viral syndrome ICD Code: B34.9 - Viral infection, unspecified (3) Sepsis ICD Code: A41.9 - Sepsis, unspecified organism Status: Acute (4) Febrile illness, acute ICD Code: R50.9 - Fever, unspecified Status: Acute Assessment and Plan Suspected viral syndrome has been placed on vancomycin and Zosyn by emergency room physician patient had failed an outpatient course of Levaquin--we'll treat like a bronchitis/pneumonia Therefore failed outpatient treatment Chronic rheumatoid arthritis Chronic gouty arthritis Hypertension continue home medications Viral syndrome Thrombocytopenia monitor Hypokalemia Will replace Elevated LFTs Will check hepatitis panel and mono A.m. labs discussed with patient and RN Code Status Full code Discussed Condition With Discussed with patient and mother and CIRCULATION MAN Physician Certification 2 Midnight Certification Type: Admission for Inpatient Services Order for Inpatient Services The services are ordered in accordance with Medicare regulations or non- Medicare payer requirements, as applicable. In the case of services not specified as inpatient-only, they are appropriately provided as inpatient services in accordance with the 2-midnight benchmark. Estimated LOS (days): 2 2 days is the estimated time the patient will need to remain in the hospital, assuming treatment plan goals are met and no additional complications. Post-Hospital Plan: Not yet determined Problem Qualifiers (1) Sepsis: Qualified Codes: A41.9 - Sepsis, unspecified organism Venkatesh Alfaro DO Jun 23, 2017 09:05
[2017-06-23] MEDS ORDERED: Vancomycin Consult Pharmacy 1 EA OTHER SCH (09:15)
[2017-06-23] MEDS ORDERED: cloNIDine HCL 0.1 MG TAB PO PRN (09:15)
[2017-06-23] MEDS: DOCUSATE SODIUM 50 MG/SENNA 8.6 MG TAB PO SCH ×2 (09:55→20:02)
[2017-06-23] MEDS: SODIUM CHLOR 0.9% 1000 ML INJ 1,000 ML IV SCH ×3 (09:55→20:59)
--- NOTE | 2017-06-23 10:15 | EKG ---
Date Performed: 06/23/2017 Time Performed: 04:24:12 PTAGE: 32 years EKG: SINUS TACHYCARDIA NONSPECIFIC T-WAVE ABNORMALITY ABNORMAL RHYTHM ECG NO PREVIOUS TRACING DOCTOR: Timothy Kaur Interpretating Date/Time 06/23/2017 10:12:06
[2017-06-23] MEDS: ENOXAPARIN SODIUM 40 MG/0.4 ML SYRINGE SQ SCH (10:57)
[2017-06-23] MEDS ORDERED: PANTOPRAZOLE SOD 40 MG DELAYED RELEASE TAB PO ONE (11:00)
[2017-06-23] MEDS: METHYLPHENIDATE HCL 10 MG EXTENDED RELEASE TAB PO SCH (11:40)
[2017-06-23] MEDS: guaiFENesin E.R. 600 MG TAB PO SCH ×2 (11:40→20:01)
[2017-06-23] MEDS: PIPERACIL-TAZO 4.5 GM PREMIX 100 ML IV SCH ×2 (11:40→20:59)
[2017-06-23 11:59] LABS: HEMOGLOBIN A1a 0.9 %; HEMOGLOBIN A1b 0.8 %; HEMOGLOBIN Ao 87.4 %; HEMOGLOBIN F 0.7 %; HEMOGLOBIN LA1C 1.9 %; HEMOGLOBIN P3 4.5 %
[2017-06-23] MEDS: RESP: ALBUTEROL 2.5 MG/IPRATROPIUM 0.5 MG NEB (PRN) INH ×2 (14:15→21:18)
[2017-06-23] MEDS: ACETAMINOPHEN 325 MG TAB PO PRN (15:03)
[2017-06-23] MEDS: VANCOMYCIN INJ 1,500 MG in SODIUM CHLORID 0.9% 500 ML INJ 500 ML IV SCH (15:36)
--- NOTE | 2017-06-23 18:08 | PD.ID.CON ---
History of Present Illness Service ID Consult Requested By Reason for Consult Evaluation and Mment of Persistent fever in a patient with RA on Sulfasalazine. Primary Care Physician Víctor Timmons MD Diagnoses: History of Present Illness is a 32-year-old male presents to the emergency department by private transportation the care of his mother for evaluation of fever. Patient states approximately 6 days ago he started noticing fever and chills. Patient was seen in the emergency department and diagnosed with a viral syndrome and told to take [id number] medications for symptomatic relief. Patient states he continued to have symptoms so he went to urgent care and was diagnosed with a possible upper respiratory infection. Patient was placed on Levaquin and Tamiflu took 2 days of Levaquin symptoms have persisted and continues to have fever. Patient denies headache visual disturbance. He reports dry non productive cough. Mild headache/sinus pressure. He reports a cold sore since fever started and inability to eat. He is requesting parental nutrition so he can avoid eating. He denies any skin lesions or joint pains. He reports back pain but no worse than in past. He reports he was doubled on sulfasalazine few months back but recently after fevers asked to discontinue this medication. No new medications started. He does report taking tylenol and ibuprofen round the clock. In the ED started on Zosyn, Vanco IV and Levaquin. His fevers persist and ID consulted for evaluation and Mment of sepsis in an IC pt. Review of Systems ROS Limitations: Poor Historian Constitutional: COMPLAINS OF: Fever, Chills, DENIES: Diaphoretic episodes, Fatigue, Weight gain, Weight loss, Dizziness, Change in appetite, Night Sweats Endocrine: DENIES: Heat/cold intolerance, Polydipsia, Polyuria, Polyphagia Eyes: DENIES: Blurred vision, Diplopia, Eye inflammation, Eye pain, Vision loss , Photosensitivity, Double Vision Ears, nose, mouth, throat: DENIES: Tinnitus, Hearing loss, Vertigo, Nasal discharge, Oral lesions, Throat pain, Hoarseness, Ear Pain, Running Nose, Epistaxis, Sinus Pain, Toothache, Odynophagia Respiratory: COMPLAINS OF: Cough (dry), DENIES: Apneas, Snoring, Wheezing, Hemoptysis, Sputum production, Shortness of breath Cardiovascular: DENIES: Chest pain, Palpitations, Syncope, Dyspnea on Exertion , PND, Lower Extremity Edema, Orthopnea, Claudication Gastrointestinal: DENIES: Abdominal pain, Black stools, Bloody stools, Constipation, Diarrhea, Nausea, Vomiting, Difficulty Swallowing, Anorexia Genitourinary: DENIES: Sexual dysfunction, Urinary frequency, Urinary incontinence, Urgency, Hematuria, Dysuria, Nocturia, Penile Discharge, Testicular Pain, Testicular Swelling Musculoskeletal: DENIES: Joint pain, Muscle aches, Stiffness, Joint Swelling, Back pain, Neck pain Integumentary: DENIES: Abnormal pigmentation, Nail changes, Pruritus, Rash Hematologic/lymphatic: DENIES: Bruising, Lymphadenopathy Immunologic/allergic: DENIES: Eczema, Urticaria Neurologic: DENIES: Abnormal gait, Headache, Localized weakness, Paresthesias, Seizures, Speech Problems, Tremor, Poor Balance Psychiatric: DENIES: Anxiety, Confusion, Mood changes, Depression, Hallucinations, Agitation, Suicidal Ideation, Homicidal Ideation, Delusions Except as stated in HPI: all other systems reviewed are Neg Past Family Social History Allergies: Coded Allergies: No Known Allergies (Unverified , 06/21/17) Past Medical History Rheumatoid arthritis Gouty arthritis Hypertension Past Surgical History Left elbow cortisone injection Radiofrequency ablation to lower lumbar Reported Medications Reported Meds & Active Scripts Active Reported Levofloxacin 500 Mg Tablet 500 Mg PO DAILY Tamiflu (Oseltamivir Phosphate) 75 Mg Cap 75 Mg PO BID Sulfasalazine 500 Mg Tab 1,000 Mg PO BID Allopurinol 300 Mg Tab 300 Mg PO DAILY Triamterene-Hydrochlorothiazide 37.5-25 Mg Tab 1 Tab PO DAILY Losartan (Losartan Potassium) 50 Mg Tab 50 Mg PO DAILY Methylphenidate CD 24 HR (Methylphenidate HCl) 40 Mg Capcr 40 Mg PO DAILY OTC Tylenol 400-800 every 4 hours po Ibuprofen 400 mg po every 4 hours Active Ordered Medications Current Medications Medications (Trade) Dose Ordered Sig/Alicia Route Start Time Stop Time Status Last Admin Sodium Chloride 1,000 ml @ 150 mls/hr Q6H40M IV 06/23/17 08:54 06/23/17 20:59 (Duoneb Neb) 1 ampule Q4HR NEB PRN INH 06/23/17 09:00 06/23/17 21:18 (Lovenox Inj) 40 mg Q24H SQ 06/23/17 12:00 06/23/17 10:57 (NS Flush) 2 ml UNSCH PRN IV FLUSH 06/23/17 09:00 (NS Flush) 2 ml BID IV FLUSH 06/23/17 09:00 (Tylenol) 650 mg Q4H PRN PO 06/23/17 09:00 06/23/17 15:03 (Zofran Inj) 4 mg Q6H PRN IVP 06/23/17 09:00 (Compazine Supp) 25 mg Q12H PRN RECTAL 06/23/17 09:00 (Restoril) 15 mg HS PRN PO 06/23/17 09:00 (Tylenol) 650 mg Q6H PRN PO 06/23/17 09:00 (Percocet 5-325 Mg) 1 tab Q6H PRN PO 06/23/17 09:00 (Percocet 10-325 Mg) 1 tab Q6H PRN PO 06/23/17 09:00 (Morphine Inj) 2 mg Q3H PRN IV PUSH 06/23/17 09:00 (Morphine Inj) 4 mg Q3H PRN IV PUSH 06/23/17 09:00 (Narcan Inj) 0.4 mg UNSCH PRN IV PUSH 06/23/17 09:00 (Lindsey-Colace) 1 tab BID PO 06/23/17 09:00 06/23/17 09:55 (Milk Of Magnesia Liq) 30 ml Q12H PRN PO 06/23/17 09:00 (Senokot) 17.2 mg Q12H PRN PO 06/23/17 09:00 (Dulcolax Supp) 10 mg DAILY PRN RECTAL 06/23/17 09:00 (Lactulose Liq) 30 ml DAILY PRN PO 06/23/17 09:00 Pharmacy Profile Note 0 ml @ 0 mls/hr UNSCH OTHER 06/23/17 09:15 Piperacillin Sod/ Tazobactam Sod 100 ml @ 200 mls/hr Q8H IV 06/23/17 12:00 06/23/17 20:59 (Mucinex Er) 600 mg BID PO 06/23/17 11:00 06/23/17 20:01 (Protonix) 40 mg DAILY PO 06/24/17 09:00 (Zyloprim) 300 mg DAILY PO 06/24/17 09:00 (Cozaar) 50 mg DAILY PO 06/24/17 09:00 (Tamiflu) 75 mg BID PO 06/23/17 21:00 06/23/17 20:01 (Maxzide 37.5-25 Mg) 1 tab DAILY PO 06/24/17 09:00 (Methylin Sr) 40 mg DAILY PO 06/23/17 12:00 (Catapres) 0.1 mg Q4H PRN PO 06/23/17 09:15 Vancomycin HCl 1500 mg/Sodium Chloride 515 ml @ 257.5 mls/ hr Q12H IV 06/23/17 15:00 06/23/17 15:36 Miscellaneous Information SPECIFIC LAB TO BE [facility]... ONCE ONCE .XX 06/24/17 14:45 06/24/17 14:46 Acyclovir Sodium 700 mg/Sodium Chloride 100 ml @ 100 mls/hr Q8H IV 06/23/17 20:00 06/23/17 20:03 (Vibramycin) 100 mg BID PO 06/23/17 21:00 06/23/17 20:02 Family History Hypertension Social History Denies any tobacco alcohol or illicits. 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 Not sexually active. Had Girlfriends in past. Physical Exam Vital Signs Vital Signs Date Time Temp Pulse Resp B/P (MAP) Pulse Ox O2 Delivery O2 Flow Rate FiO2 06/23/17 17:58 97.7 06/23/17 16:00 103.0 121 22 127/58 (81) 99 06/23/17 14:18 98 Nasal Cannula 3.00 06/23/17 12:15 100.7 115 20 117/64 (81) 96 06/23/17 10:33 99.1 98 16 122/76 (91) 99 06/23/17 07:10 98 17 100 Room Air 06/23/17 07:10 99.1 99 17 116/64 (81) 100 Room Air 06/23/17 06:46 100 18 118/56 (76) 96 Room Air 06/23/17 05:47 99.8 100 18 117/58 (77) 99 Room Air 06/23/17 04:23 111 18 113/59 (77) 96 Room Air 06/23/17 03:07 98 Room Air 06/23/17 03:07 103.0 125 18 113/55 (74) 98 Room Air Physical Exam GENERAL: Obese well-developed patient, in no apparent distress. SKIN: No rashes, ecchymoses or lesions. Cool and dry. HEAD: Atraumatic. Normocephalic. No temporal or scalp tenderness. EYES: Pupils equal round and reactive. Extraocular motions intact. No scleral icterus. No injection or drainage. ENT: Nose without bleeding, purulent drainage or septal hematoma. Throat without erythema, tonsillar hypertrophy or exudate. Uvula midline. Airway patent. NECK: Trachea midline. Supple, nontender, no meningeal signs. CARDIOVASCULAR: Regular rate and rhythm without murmurs, gallops, or rubs. RESPIRATORY: Clear to auscultation. Breath sounds equal bilaterally. No wheezes , rales, or rhonchi. GASTROINTESTINAL: Abdomen soft, non-tender, nondistended. MUSCULOSKELETAL: Extremities without clubbing, cyanosis, or edema. NEUROLOGICAL: Awake and alert. Cranial nerves II through XII intact. Motor and sensory grossly within normal limits. Five out of 5 muscle strength in all muscle groups. Normal speech. Psych cooperative, flat affect IV line sites with no e.o infection. Laboratory Laboratory Tests Test 06/23/17 03:50 06/23/17 05:15 06/23/17 07:51 06/23/17 13:53 White Blood Count 3.8 Red Blood Count 4.09 Hemoglobin 12.9 Hematocrit 37.9 Mean Corpuscular Volume 92.5 Mean Corpuscular Hemoglobin 31.6 Mean Corpuscular Hemoglobin Concent 34.1 Red Cell Distribution Width 14.0 Platelet Count 56 Mean Platelet Volume 11.6 Neutrophils (%) (Auto) 64.3 Lymphocytes (%) (Auto) 22.2 Monocytes (%) (Auto) 13.2 Eosinophils (%) (Auto) 0.1 Basophils (%) (Auto) 0.2 Neutrophils # (Auto) 2.4 Lymphocytes # (Auto) 0.8 Monocytes # (Auto) 0.5 Eosinophils # (Auto) 0.0 Basophils # (Auto) 0.0 CBC Comment AUTO DIFF Differential Total Cells Counted 100 Neutrophils % (Manual) 57 Band Neutrophils % 23 Lymphocytes % 14 Monocytes % 6 Neutrophils # (Manual) 3.0 Nucleated Red Blood Cells 1 Differential Comment FINAL DIFF MANUAL Atypical Lymphocytes Platelet Estimate LOW Platelet Morphology Comment NORMAL Red Cell Morphology Comment NORMAL Blood Urea Nitrogen 14 Creatinine 1.06 Random Glucose 102 Total Protein 6.6 Albumin 3.4 Calcium Level 8.2 Alkaline Phosphatase 161 Aspartate Amino Transf (AST/SGOT) 99 Alanine Aminotransferase (ALT/SGPT) 139 Total Bilirubin 1.5 Sodium Level 135 Potassium Level 3.4 Chloride Level 103 Carbon Dioxide Level 24.6 Anion Gap 7 Estimat Glomerular Filtration Rate 80 Hemoglobin A1c 4.7 Lactic Acid Level 1.4 2.1 Phosphorus Level 2.0 Magnesium Level 2.0 Lipase 105 Free Thyroxine 1.20 Thyroid Stimulating Hormone 3rd Gen 2.680 Urine Color DARK-YELLOW Urine Turbidity CLEAR Urine pH 6.0 Urine Specific Nov[place] 1.033 Urine Protein TRACE Urine Glucose (UA) NEG Urine Ketones 10 Urine Occult Blood SMALL Urine Nitrite NEG Urine Bilirubin NEG Urine Urobilinogen 4.0 Urine Leukocyte Esterase NEG Urine RBC 14 Urine WBC 1 Urine Squamous Epithelial Cells <1 Urine Mucus FEW Microscopic Urinalysis Comment CATH-CULT NOT IND Hepatitis A IgM Antibody NEGATIVE Hepatitis B Surface Antigen NEGATIVE Hepatitis B Core IgM Antibody NEGATIVE Hepatitis C Antibody NEGATIVE Monoscreen NEG Date/Time Source Procedure Growth Status 06/23/17 09:30 Blood Peripheral Aerobic Blood Culture Pending Received 06/23/17 09:30 Blood Peripheral Anaerobic Blood Culture Pending Received 06/23/17 15:20 Nasal Aspirate Influenza Types A,B Antigen (ELMER) - Final NEGATIVE FOR FLU A AND B ANTIGEN.... Complete Result Diagram: 06/23/17 0350 06/23/17 0350 Imaging Last Impressions Chest X-Ray 06/23/17 0339 Signed Impressions: Service Date/Time: Friday, June 23, 2017 03:51 - CONCLUSION: No acute disease. Tim Foster MD Abdomen/Pelvis CT 06/23/17 0000 Signed Impressions: Service Date/Time: Friday, June 23, 2017 06:48 - CONCLUSION: Small hypodensity within the posterior spleen probably of no clinical significance. There are a few tiny mesenteric lymph nodes and one 2.3 x 3.1 cm periportal lymph node. There is some minimal stranding around the second part of the duodenum correlate for peptic ulcer disease. No abscess identified Vick Russell MD Assessment and Plan Assessment and Plan SIRS possible Severe Sepsis (fever, leucopenia, elevated lactic acid, meningitis ) Persistent fever ? Meningoencephalitis (fever, headache, Neck stiffness, Cold sore (HSV) in mouth. Atypical pneumonia Abnormal LFTs Leucopenia and thrombocytopenia: meds, sepsis. Recs Continue Zosyn IV Continue Vanco IV (continue target 15-20 ? meningitis) Start Doxy oral Start Acyclovir IV (Re: ? HSV meningoencephalitis) Check PT/PTT stat Check Hepatitis panel. Check HIV antibody screen Check HIV DNA PCR (r/o acute retroviral syndrome) Order LP (please follow platelets in am prior to sending patient for LP) CT Chest, Neck and Brain. Patient does not want MRI unless sedated as he is phobic. Follow cultures Follow clinically. covering for me this weekend. Harriett Ulloa MD Jun 23, 2017 18:08
[2017-06-23] MEDS ORDERED: IOHEXOL 350 MG/ML 10 ML VIAL (for RAD DIAG) IVCONTRAST ONE (19:39)
--- NOTE | 2017-06-23 19:49 | RADRPT ---
EXAM DATE/TIME: 06/23/2017 19:23 [facility] COMPARISON: No previous studies available for comparison. INDICATIONS : Possible meningtitis. IV CONTRAST: 50 cc Omnipaque 350 (iohexol) IV RADIATION DOSE: 47.12 CTDIvol (mGy) MEDICAL HISTORY : Cardiovascular disease. Hypertension. SURGICAL HISTORY : None. ENCOUNTER: Initial ACUITY: 1 day PAIN SCALE: 0/10 LOCATION: cranial TECHNIQUE: Multiple contiguous axial images were obtained of the head. Using automated exposure control and adj ustment of the mA and/or kV according to patient size, radiation dose was kept as low as reasonably a chievable to obtain optimal diagnostic quality images. DICOM format image data is available electro nically for review and comparison. FINDINGS: CEREBRUM: The ventricles are normal for age. No evidence of midline shift, cerebral edema or blood products. No extra-axial fluid collections are seen. POSTERIOR FOSSA: The cerebellum and brainstem are intact. The 4th ventricle is midline. The cerebellar pontine angle is unremarkable. EXTRACRANIAL: The visualized portion of the orbits is intact. SKULL: There is mucoperiosteal thickening of the visualized ethmoid air cells. Visualized paranasal sinuses are otherwise clear. Mastoid air cells are also clear. POST CONTRAST: No abnormal areas of parenchymal or dural enhancement. No evidence of blood-brain barrier breakdown. No perceptible meningeal enhancement. CONCLUSION: No intracranial abnormality demonstrated. Mild ethmoid sinus disease. Pan Weber MD on June 23, 2017 at 19:46 Board Certified Radiologist. This report was verified electronically.
--- NOTE | 2017-06-23 19:58 | RADRPT ---
EXAM DATE/TIME: 06/23/2017 19:27 [facility] COMPARISON: No previous studies available for comparison. INDICATIONS : Shortness of breath, possible pneumonia. IV CONTRAST: 50 cc Omnipaque 350 (iohexol) IV ; Cumulative dose for multiple exams. RADIATION DOSE: 14.13 CTDIvol (mGy) ; Combined studies MEDICAL HISTORY : Cardiovascular disease. Hypertension. SURGICAL HISTORY : None. ENCOUNTER: Initial ACUITY: 1 day PAIN SCALE: 0/10 LOCATION: chest TECHNIQUE: Volumetric scanning of the chest was performed. Using automated exposure control and adjustment of t he mA and/or kV according to patient size, radiation dose was kept as low as reasonably achievable to obtain optimal diagnostic quality images. DICOM format image data is available electronically for review and comparison. Follow-up recommendations for detected pulmonary nodules are based at a minimum on nodule size and pa tient risk factors according to Fleischner Society Guidelines. FINDINGS: LUNGS: There is no consolidation or pneumothorax. No concerning pulmonary nodule is visualized. PLEURA: There is no pleural thickening or pleural effusion. MEDIASTINUM: The heart and great vessels demonstrate no acute abnormality. There is no mediastinal or hilar lymph adenopathy. AXILLAE: Within normal limits. No lymphadenopathy. SKELETAL: No acute bony abnormality demonstrated. There is dextroconvex curvature of the midthoracic spine. MISCELLANEOUS: Visualized spleen appears at least mildly enlarged. Liver appears mildly fatty infiltrated. CONCLUSION: 1. Negative noncontrast CT of the chest. 2. Liver is mildly fatty infiltrated and is probably mildly enlarged. 3. Dextroconvex curvature of the thoracic spine. Pan Weber MD on June 23, 2017 at 19:55 Board Certified Radiologist. This report was verified electronically.
[2017-06-23] MEDS: OSELTAMIVIR PHOSPHATE 75 MG CAP PO SCH (20:01)
[2017-06-23] MEDS: DOXYCYCLINE HYCLATE 100 MG CAP PO SCH (20:02)
--- NOTE | 2017-06-23 20:02 | RADRPT ---
EXAM DATE/TIME: 06/23/2017 19:27 [facility] COMPARISON: No previous studies available for comparison. INDICATIONS : Throat pain, possible abscess. IV CONTRAST: 50 cc Omnipaque 350 (iohexol) IV ; Cumulative dose for multiple exams. RADIATION DOSE: 14.13 CTDIvol (mGy) ; Combined studies MEDICAL HISTORY : Cardiovascular disease. Hypertension. SURGICAL HISTORY : None. ENCOUNTER: Initial ACUITY: 1 day PAIN SCALE: 0/10 LOCATION: neck TECHNIQUE: Volumetric scanning of the neck was performed. Using automated exposure control and adjustment of th e mA and/or kV according to patient size, radiation dose was kept as low as reasonably achievable to obtain optimal diagnostic quality images. DICOM format image data is available electronically for r eview and comparison. FINDINGS: NASOPHARYNX: The nasopharyngeal airway has a normal configuration. No mucosal thickening or mass is seen. OROPHARYNX: The intrinsic muscles of the tongue are symmetric. The tonsillar pillars are intact. The prevertebr al soft tissues are not thickened. LARYNX: The supraglottic, glottic, and infraglottic structures are intact. PARAPHARYNGEAL: The parapharyngeal space is intact. SALIVARY GLANDS: The parotid and submandibular glands are intact. LYMPH NODES: Shotty cervical, submandibular and submental lymph nodes. There are also some scattered subcentimeter subcutaneous lymph nodes posteriorly of the neck. Nothing pathologic appearing by size criteria. THYROID: Homogeneous enhancement without evidence of nodule. BONES: Unremarkable. CONCLUSION: 1. No evidence of abscess. 2. Shotty nonspecific lymph nodes. Please see above. Pan Weber MD on June 23, 2017 at 19:57 Board Certified Radiologist. This report was verified electronically.
[2017-06-23] MEDS: ACYCLOVIR INJ 700 MG in SODIUM CHLORIDE 0.9% INJ 100 ML IV SCH (20:03)
[2017-06-23 20:49] LABS: ACETAMINOPHEN 3.6 MCG/ML (10.0-30.0)
[2017-06-23 20:53] LABS: APTT (PATIENT) 37.8 SEC (24.3-30.1); INTERNATIONAL NORMALIZED RATIO 1.1 RATIO; PROTHROMBIN TIME - PATIENT 12.6 SEC (9.8-11.6)
[2017-06-23] MEDS ORDERED: SODIUM CHLORIDE 0.65% NASAL SPRAY 45 ML BTL EACH NARE PRN (23:30)
[2017-06-24] VITALS (9 sets, daily range): BP systolic 118–137; BP diastolic 63–68; PULSE 108–118; RESP 16–20; TEMP 97.9–102.9; O2SAT 94–98
[2017-06-24] MEDS: ACETAMINOPHEN 325 MG TAB PO PRN ×4 (00:14→16:15)
[2017-06-24] MEDS: VANCOMYCIN INJ 1,500 MG in SODIUM CHLORID 0.9% 500 ML INJ 500 ML IV SCH ×2 (03:32→23:24)
[2017-06-24] MEDS: RESP: ALBUTEROL 2.5 MG/IPRATROPIUM 0.5 MG NEB (PRN) INH (03:32)
[2017-06-24] MEDS: PIPERACIL-TAZO 4.5 GM PREMIX 100 ML IV SCH ×3 (05:19→21:12)
[2017-06-24] MEDS: ACYCLOVIR INJ 700 MG in SODIUM CHLORIDE 0.9% INJ 100 ML IV SCH ×3 (06:08→21:46)
[2017-06-24] MEDS: SODIUM CHLOR 0.9% 1000 ML INJ 1,000 ML IV SCH (06:13)
[2017-06-24 07:23] LABS: AUTOMATED NEUTROPHIL # 4.1 TH/MM3 (1.8-7.7); BASOPHIL % 0.5 % (0.0-2.0); HEMATOCRIT 32.9 % (39.0-51.0); LYMPH % 24.6 % (9.0-44.0); LYMPHOCYTE # 1.6 TH/MM3 (1.0-4.8); MEAN CELL VOLUME 92.7 FL (80.0-100.0); MEAN CORPUSCULAR HEMOGLOBIN 31.3 PG (27.0-34.0); MEAN CORPUSCULAR HGB CONC 33.8 % (32.0-36.0); MONO % 10.3 % (0.0-8.0); NEUT % 64.6 % (16.0-70.0); PLATELET COUNT 67 TH/MM3 (150-450); RED BLOOD COUNT 3.55 MIL/MM3 (4.50-5.90); RED CELL DISTRIBUTION WIDTH 14.2 % (11.6-17.2); WHITE BLOOD COUNT 6.4 TH/MM3 (4.0-11.0)
[2017-06-24 07:25] LABS: HEMO FLAGS AUTO DIFF
[2017-06-24 07:44] LABS: BICARBONATE 22.1 MEQ/L (21.0-32.0); POTASSIUM 3.1 MEQ/L (3.5-5.1)
[2017-06-24 08:05] LABS: CALCIUM-PROTEIN CORRECTED 8.1 MG/DL (8.5-10.1)
[2017-06-24] MEDS: guaiFENesin E.R. 600 MG TAB PO SCH (08:38)
[2017-06-24] MEDS: ALLOPURINOL 300 MG TAB PO SCH (08:39)
[2017-06-24] MEDS: DOCUSATE SODIUM 50 MG/SENNA 8.6 MG TAB PO SCH (08:39)
[2017-06-24] MEDS: TRIAMTERENE/HCTZ 37.5 MG/25 MG TAB PO SCH (08:39)
[2017-06-24] MEDS: OSELTAMIVIR PHOSPHATE 75 MG CAP PO SCH ×2 (08:39→21:12)
[2017-06-24] MEDS: PANTOPRAZOLE SOD 40 MG DELAYED RELEASE TAB PO SCH (08:39)
[2017-06-24] MEDS: METHYLPHENIDATE HCL 10 MG EXTENDED RELEASE TAB PO SCH ×2 (08:39→08:43)
[2017-06-24] MEDS: LOSARTAN 50 MG TAB PO SCH (08:39)
[2017-06-24] MEDS: SODIUM CHLORIDE 0.9% FLUSH 10 ML FLUSH IV FLUSH SCH ×2 (08:56→21:11)
[2017-06-24] MEDS: DOXYCYCLINE HYCLATE 100 MG CAP PO SCH ×2 (08:56→21:15)
[2017-06-24 09:16] LABS: BANDS 14 % (0-6); NEUTROPHIL # MANUAL DIFF 4.7 TH/MM3 (1.8-7.7); PLATELET ESTIMATE SMEAR LOW (NORMAL); PLATELET MORPHOLOGY NORMAL (NORMAL); POLYS (SEG NEUTROPHILS) 59 % (16-70); SCAN/DIFF FINAL DIFF MANUAL; WBC DIFF SAMPLE 100
--- NOTE | 2017-06-24 09:58 | HHI.PR ---
Subjective Remarks Follow-up febrile episodes 06/24/17-patient seen and examined in the presence of his mom, plain of testicular swelling seen this morning. Reports tick bite on 06/05/17 on his buttocks. States, this happened in an area that [place] a lot of [place]. Case discussed this morning with Dr. Kyra Ulloa Objective Vitals Vital Signs Date Time Temp Pulse Resp B/P (MAP) Pulse Ox O2 Delivery O2 Flow Rate FiO2 06/24/17 08:00 99.7 111 16 127/63 (84) 95 06/24/17 06:16 100.7 06/24/17 04:00 97.9 113 20 137/65 (89) 94 06/24/17 04:00 Nasal Cannula 2.00 06/24/17 03:30 98 Nasal Cannula 2.00 06/24/17 00:00 102.9 117 20 131/68 (89) 98 06/24/17 00:00 Nasal Cannula 2.00 06/23/17 21:18 98 06/23/17 20:00 114 06/23/17 20:00 Nasal Cannula 2.00 06/23/17 20:00 98.7 113 18 142/61 (88) 98 06/23/17 17:58 97.7 06/23/17 16:00 103.0 121 22 127/58 (81) 99 06/23/17 14:18 98 Nasal Cannula 3.00 06/23/17 12:15 100.7 115 20 117/64 (81) 96 06/23/17 10:33 99.1 98 16 122/76 (91) 99 I/O 06/23/17 06/23/17 06/23/17 06/24/17 06/24/17 06/24/17 07:00 15:00 23:00 07:00 15:00 23:00 Intake Total 2362.5 ml 340 ml 3398 ml 1600 ml Output Total 200 ml 750 ml Balance 2362.5 ml 140 ml 3398 ml 850 ml Intake Oral 240 ml 500 ml IV Total 2362.5 ml 100 ml 3398 ml 1100 ml Output Urine Total 200 ml 750 ml # Bowel Movements 0 Result Diagram: 06/24/17 0705 06/24/17 07 Imaging Last Impressions Chest X-Ray 06/23/17 0339 Signed Impressions: Service Date/Time: Friday, June 23, 2017 03:51 - CONCLUSION: No acute disease. Tim Foster MD Neck CT 06/23/17 Signed Impressions: Service Date/Time: Friday, June 23, 2017 19:27 - CONCLUSION: 1. No evidence of abscess. 2. Shotty nonspecific lymph nodes. Please see above. Pan Weber MD Head CT 06/23/17 Signed Impressions: Service Date/Time: Friday, June 23, 2017 19:23 - CONCLUSION: No intracranial abnormality demonstrated. Mild ethmoid sinus disease. Pan Weber MD Chest CT 06/23/17 Signed Impressions: Service Date/Time: Friday, June 23, 2017 19:27 - CONCLUSION: 1. Negative noncontrast CT of the chest. 2. Liver is mildly fatty infiltrated and is probably mildly enlarged. 3. Dextroconvex curvature of the thoracic spine. Pan Weber MD Abdomen/Pelvis CT 06/23/17 Signed Impressions: Service Date/Time: Friday, June 23, 2017 06:48 - CONCLUSION: Small hypodensity within the posterior spleen probably of no clinical significance. There are a few tiny mesenteric lymph nodes and one 2.3 x 3.1 cm periportal lymph node. There is some minimal stranding around the second part of the duodenum correlate for peptic ulcer disease. No abscess identified Vick Russell MD Objective Remarks GENERAL: NAD SKIN: Warm and dry. HEAD: Normocephalic. EYES: No scleral icterus. No injection or drainage. NECK: Supple, trachea midline. No JVD or lymphadenopathy. CARDIOVASCULAR: Regular rate and rhythm without murmurs, gallops, or rubs. RESPIRATORY: Breath sounds equal bilaterally. No accessory muscle use. GASTROINTESTINAL: Abdomen soft, non-tender, nondistended. MUSCULOSKELETAL: No cyanosis, or edema. : Testicular swelling BACK: Nontender without obvious deformity. No CVA tenderness. A/P Problem List: (1) Fever and chills ICD Code: R50.9 - Fever, unspecified (2) Viral syndrome ICD Code: B34.9 - Viral infection, unspecified (3) Sepsis ICD Code: A41.9 - Sepsis, unspecified organism Status: Acute (4) Febrile illness, acute ICD Code: R50.9 - Fever, unspecified Status: Acute (5) Thrombocytopenia ICD Code: D69.6 - Thrombocytopenia, unspecified Assessment and Plan 32-year-old man with SIRS possible Severe Sepsis Persistent fever ? Meningoencephalitis Atypical pneumonia Leucopenia and thrombocytopenia Currently on Zosyn, Vanco, doxy and acyclovir Appreciate input from infectious disease specialist Hepatitis panel negative, HIV pending [place] screen negative CMV PCR pending Lumbar puncture pending Check Lyme disease PCR as patient reported tick bite 06/05/17 Hypertension Continue current medications Testicular edema/swelling Hep-Lock IV fluid Elevated DVT prophylaxis: Lovenox Problem Qualifiers (1) Sepsis: Qualified Codes: A41.9 - Sepsis, unspecified organism Mynor Mccullough MD Jun 24, 2017 09:58
[2017-06-24] MEDS ORDERED: PNEUMOCOCCAL POLYVALENT INJ 25 MCG/0.5 ML SYR IM ONE (10:00)
[2017-06-24] MEDS: ONDANSETRON HCL 4 MG/2 ML VIAL IVP PRN ×2 (11:57→16:16)
[2017-06-24] MEDS: ENOXAPARIN SODIUM 40 MG/0.4 ML SYRINGE SQ SCH (11:59)
[2017-06-24] MEDS ORDERED: PHARMACY ORDERED LAB ONE (14:45)
[2017-06-24] MEDS ORDERED: ACETAMINOPHEN 650 MG SUPP RECTAL ONE (20:45)
[2017-06-24] MEDS ORDERED: PROCHLORPERAZINE INJ 10 MG/2 ML VIAL IV PUSH ONE (20:45)
[2017-06-24] MEDS: BENZONATATE 100 MG CAP PO PRN (22:14)
[2017-06-25] VITALS (8 sets, daily range): BP systolic 107–137; BP diastolic 55–76; PULSE 74–105; RESP 18; TEMP 97.9–100.4; O2SAT 92–98
[2017-06-25] MEDS ORDERED: FLUTICASONE PROPIONATE 50 MCG/ACT 16 GM NASAL SPRAY NASAL PRN (00:30)
[2017-06-25] MEDS: PIPERACIL-TAZO 4.5 GM PREMIX 100 ML IV SCH ×3 (02:55→20:01)
[2017-06-25] MEDS: ACYCLOVIR INJ 700 MG in SODIUM CHLORIDE 0.9% INJ 100 ML IV SCH ×3 (03:35→20:39)
[2017-06-25] MEDS: VANCOMYCIN INJ 1,500 MG in SODIUM CHLORID 0.9% 500 ML INJ 500 ML IV SCH ×3 (04:54→22:01)
[2017-06-25] MEDS: BENZONATATE 100 MG CAP PO PRN ×2 (05:45→22:01)
[2017-06-25] MEDS: ALLOPURINOL 300 MG TAB PO SCH (08:51)
[2017-06-25] MEDS: LOSARTAN 50 MG TAB PO SCH (08:51)
[2017-06-25] MEDS: OSELTAMIVIR PHOSPHATE 75 MG CAP PO SCH ×2 (08:51→20:01)
[2017-06-25] MEDS: PANTOPRAZOLE SOD 40 MG DELAYED RELEASE TAB PO SCH (08:51)
[2017-06-25] MEDS: TRIAMTERENE/HCTZ 37.5 MG/25 MG TAB PO SCH (08:51)
[2017-06-25] MEDS: SODIUM CHLORIDE 0.9% FLUSH 10 ML FLUSH IV FLUSH SCH ×2 (08:52→20:01)
[2017-06-25] MEDS: METHYLPHENIDATE HCL 10 MG EXTENDED RELEASE TAB PO SCH (08:54)
[2017-06-25] MEDS: DOXYCYCLINE HYCLATE 100 MG CAP PO SCH ×2 (09:00→20:01)
--- NOTE | 2017-06-25 09:56 | HHI.PR ---
Subjective Remarks 32-year-old male presents to the emergency department by private transportation the care of his mother for evaluation of fever. Patient states approximately 6 days ago he started noticing fever and chills. Patient states he felt well 7 days ago except for some mild sinus pressure. Patient was seen in the emergency department and diagnosed with a viral syndrome and told to take over- the-counter medications for symptomatic relief. Patient states he continued to have symptoms so he went to urgent care and was diagnosed with a possible upper respiratory infection. Patient was placed on Levaquin and took 2 days of Levaquin symptoms have persisted and continues to have fever. Patient denies headache visual disturbance mild sinus pressure no sore throat or drainage no earache no neck pain no neck stiffness no shortness of breath no chest pain no productive cough no wheezing mild nausea no vomiting no abdominal pain no diarrhea no dysuria no frequency no urgency no hematuria no skin rash no joint pain and no joint swelling. The patient rates his pain 0/10 in intensity. Patient does have a history of rheumatoid arthritis and was on sulfasalazine and was told to discontinue this medication as it may be responsible for his temperature elevation. Patient has not been taking sulfasalazine. Patient also has history of gouty arthritis and hypertension. No other family members are similar symptoms. Patient's last acetaminophen was at 8 PM last evening. Was seen in the emergency department and of course recommended admission started on vancomycin and Zosyn [id number]-patient seen and examined in the presence of his mom, plain of testicular swelling seen this morning. Reports tick bite on 06/05/17 on his buttocks. States, this happened in an area that [place]. Case discussed this morning with Dr. Kyra Ulloa 10-1 SOME CONCERN FOR LYME DISEASE DUE TO TICK BITES IS ON DOXYCYCLINE Objective Vitals Vital Signs Date Time Temp Pulse Resp B/P (MAP) Pulse Ox O2 Delivery O2 Flow Rate FiO2 06/25/17 09:02 98.7 96 18 137/64 (88) 97 06/25/17 08:50 98.7 96 18 137/64 (88) 97 06/25/17 04:00 97.9 74 18 120/61 (80) 92 06/25/17 00:00 100.4 105 18 107/55 (72) 95 06/24/17 20:00 108 06/24/17 20:00 Room Air 06/24/17 20:00 102.6 115 18 130/68 (88) 98 06/24/17 16:00 102.9 118 18 118/63 (81) 95 06/24/17 12:00 102.4 113 18 133/68 (89) 94 06/24/17 11:11 Nasal Cannula 2.00 06/24/17 10:30 102.2 I/O 06/24/17 06/24/17 06/24/17 06/25/17 06/25/17 06/25/17 07:00 15:00 23:00 07:00 15:00 23:00 Intake Total 1600 ml 820 ml 815 ml Output Total 750 ml 1125 ml 300 ml Balance 850 ml -305 ml 515 ml Intake Oral 500 ml 720 ml IV Total 1100 ml 100 ml 815 ml Output Urine Total 750 ml 1125 ml 300 ml Bladder Scan Volume Amount 150 ml # Bowel Movements 1 Result Diagram: 06/24/17 0705 06/24/17 0705 Other Results Laboratory Tests Test 06/23/17 03:50 06/23/17 05:15 06/23/17 07:51 06/23/17 13:53 White Blood Count 3.8 TH/MM3 Red Blood Count 4.09 MIL/MM3 Hemoglobin 12.9 GM/DL Hematocrit 37.9 % Mean Corpuscular Volume 92.5 FL Mean Corpuscular Hemoglobin 31.6 PG Mean Corpuscular Hemoglobin Concent 34.1 % Red Cell Distribution Width 14.0 % Platelet Count 56 TH/MM3 Mean Platelet Volume 11.6 FL Neutrophils (%) (Auto) 64.3 % Lymphocytes (%) (Auto) 22.2 % Monocytes (%) (Auto) 13.2 % Eosinophils (%) (Auto) 0.1 % Basophils (%) (Auto) 0.2 % Neutrophils # (Auto) 2.4 TH/MM3 Lymphocytes # (Auto) 0.8 TH/MM3 Monocytes # (Auto) 0.5 TH/MM3 Eosinophils # (Auto) 0.0 TH/MM3 Basophils # (Auto) 0.0 TH/MM3 CBC Comment AUTO DIFF Differential Total Cells Counted 100 Neutrophils % (Manual) 57 % Band Neutrophils % 23 % Lymphocytes % 14 % Monocytes % 6 % Neutrophils # (Manual) 3.0 TH/MM3 Nucleated Red Blood Cells 1 /100 WBC Differential Comment FINAL DIFF MANUAL Atypical Lymphocytes % Platelet Estimate LOW Platelet Morphology Comment NORMAL Red Cell Morphology Comment NORMAL Blood Urea Nitrogen 14 MG/DL Creatinine 1.06 MG/DL Random Glucose 102 MG/DL Total Protein 6.6 GM/DL Albumin 3.4 GM/DL Calcium Level 8.2 MG/DL Alkaline Phosphatase 161 U/L Aspartate Amino Transf (AST/SGOT) 99 U/L Alanine Aminotransferase (ALT/SGPT) 139 U/L Total Bilirubin 1.5 MG/DL Sodium Level 135 MEQ/L Potassium Level 3.4 MEQ/L Chloride Level 103 MEQ/L Carbon Dioxide Level 24.6 MEQ/L Anion Gap 7 MEQ/L Estimat Glomerular Filtration Rate 80 ML/MIN Hemoglobin A1c 4.7 % Lactic Acid Level 1.4 mmol/L 2.1 mmol/L Phosphorus Level 2.0 MG/DL Magnesium Level 2.0 MG/DL Lipase 105 U/L Free Thyroxine 1.20 NG/DL Thyroid Stimulating Hormone 3rd Gen 2.680 uIU/ML Urine Color DARK-YELLOW Urine Turbidity CLEAR Urine pH 6.0 Urine Specific [place] 1.033 Urine Protein TRACE mg/dL Urine Glucose (UA) NEG mg/dL Urine Ketones 10 mg/dL Urine Occult Blood SMALL Urine Nitrite NEG Urine Bilirubin NEG Urine Urobilinogen 4.0 MG/DL Urine Leukocyte Esterase NEG Urine RBC 14 /hpf Urine WBC 1 /hpf Urine Squamous Epithelial Cells <1 /hpf Urine Mucus FEW /lpf Microscopic Urinalysis Comment CATH-CULT NOT IND Hepatitis A IgM Antibody NEGATIVE Hepatitis B Surface Antigen NEGATIVE Hepatitis B Core IgM Antibody NEGATIVE Hepatitis C Antibody NEGATIVE Monoscreen NEG Test 06/23/17 20:00 06/24/17 07:05 06/24/17 17:00 06/25/17 07:25 Prothrombin Time 12.6 SEC Prothromb Time International Ratio 1.1 RATIO Activated Partial Thromboplast Time 37.8 SEC C-Reactive Protein 18.00 MG/DL Acetaminophen Level 3.6 MCG/ML White Blood Count 6.4 TH/MM3 Red Blood Count 3.55 MIL/MM3 Hemoglobin 11.1 GM/DL Hematocrit 32.9 % Mean Corpuscular Volume 92.7 FL Mean Corpuscular Hemoglobin 31.3 PG Mean Corpuscular Hemoglobin Concent 33.8 % Red Cell Distribution Width 14.2 % Platelet Count 67 TH/MM3 Mean Platelet Volume 11.1 FL Neutrophils (%) (Auto) 64.6 % Lymphocytes (%) (Auto) 24.6 % Monocytes (%) (Auto) 10.3 % Eosinophils (%) (Auto) 0.0 % Basophils (%) (Auto) 0.5 % Neutrophils # (Auto) 4.1 TH/MM3 Lymphocytes # (Auto) 1.6 TH/MM3 Monocytes # (Auto) 0.7 TH/MM3 Eosinophils # (Auto) 0.0 TH/MM3 Basophils # (Auto) 0.0 TH/MM3 CBC Comment AUTO DIFF Differential Total Cells Counted 100 Neutrophils % (Manual) 59 % Band Neutrophils % 14 % Lymphocytes % 15 % Monocytes % 12 % Neutrophils # (Manual) 4.7 TH/MM3 Differential Comment FINAL DIFF MANUAL Platelet Estimate LOW Platelet Morphology Comment NORMAL Blood Urea Nitrogen 10 MG/DL Creatinine 0.96 MG/DL Random Glucose 96 MG/DL Total Protein 5.7 GM/DL Calcium Level 7.3 MG/DL Sodium Level 133 MEQ/L Potassium Level 3.1 MEQ/L Chloride Level 101 MEQ/L Carbon Dioxide Level 22.1 MEQ/L Anion Gap 10 MEQ/L Estimat Glomerular Filtration Rate 90 ML/MIN Protein Corrected Calcium 8.1 MG/DL Vancomycin Level Trough 5.2 MCG/ML Imaging Last Impressions Chest X-Ray 06/23/17 0339 Signed Impressions: Service Date/Time: Friday, June 23, 2017 03:51 - CONCLUSION: No acute disease. Tim Foster MD Neck CT 06/23/17 0000 Signed Impressions: Service Date/Time: Friday, June 23, 2017 19:27 - CONCLUSION: 1. No evidence of abscess. 2. Shotty nonspecific lymph nodes. Please see above. Pan Weber MD Head CT 06/23/17 0000 Signed Impressions: Service Date/Time: Friday, June 23, 2017 19:23 - CONCLUSION: No intracranial abnormality demonstrated. Mild ethmoid sinus disease. Pan Weber MD Chest CT 06/23/17 0000 Signed Impressions: Service Date/Time: Friday, June 23, 2017 19:27 - CONCLUSION: 1. Negative noncontrast CT of the chest. 2. Liver is mildly fatty infiltrated and is probably mildly enlarged. 3. Dextroconvex curvature of the thoracic spine. Pan Weber MD Abdomen/Pelvis CT 06/23/17 0000 Signed Impressions: Service Date/Time: Geoff, June 23, 2017 06:48 - CONCLUSION: Small hypodensity within the posterior spleen probably of no clinical significance. There are a few tiny mesenteric lymph nodes and one 2.3 x 3.1 cm periportal lymph node. There is some minimal stranding around the second part of the duodenum correlate for peptic ulcer disease. No abscess identified Vick Russell MD Objective Remarks GENERAL: AWAKE ALERT AND ORIENTED TALKATIVE AND COOPERATIVE SKIN: Warm and dry. HEAD: Atraumatic. Normocephalic. EYES: Pupils equal and round. No scleral icterus. No injection or drainage. EOMI ENT: No nasal bleeding or discharge. Mucous membranes pink and moist. TONGUE MIDLINE NECK: Trachea midline. No JVD. CARDIOVASCULAR: Regular rate and rhythm. S1, S2 NO S3 OR S4 RESPIRATORY: No accessory muscle use. Clear to auscultation. Breath sounds equal bilaterally. GASTROINTESTINAL: Abdomen soft, non-tender, nondistended. Hepatic and splenic margins not palpable. OBESE--SCROTAL AREA SWOLLEN DUE TO FLUIDS MUSCULOSKELETAL: Extremities without clubbing, cyanosis, or edema. No obvious deformities. NEUROLOGICAL: Awake and alert. No obvious cranial nerve deficits. Motor grossly within normal limits. Five out of 5 muscle strength in the arms and legs. Normal speech. PSYCHIATRIC: Appropriate mood and affect; insight and judgment normal. Medications and IVs Current Medications Piperacillin Sod/ Tazobactam Sod 100 ml @ 200 mls/hr ONCE ONCE IV Last administered on 06/23/17 04:22; Start 06/23/17 at 03:45; Stop 06/23/17 at 04:14 ; Status DC Vancomycin HCl 1250 mg/Sodium Chloride 262.5 ml @ 262.5 mls/ hr ONCE ONCE IV Last administered on 06/23/17 04:54; Start 06/23/17 at 03:45; Stop 06/23/17 at 04:44; Status DC Sodium Chloride 1,000 ml @ 999 mls/hr BOLUS ONCE IV Last administered on 06/23 03:53; Start 06/23/17 at 03:45; Stop 06/23/17 at 04:45; Status DC Sodium Chloride 1,000 ml @ 999 mls/hr BOLUS ONCE IV Last administered on 06/23 04:22; Start 06/23/17 at 03:45; Stop 06/23/17 at 04:45; Status DC Acetaminophen (Tylenol) 1,000 mg ONCE ONCE PO Last administered on 06/23/17 04:22; Start 06/23/17 at 03:45; Stop 06/23/17 at 03:50; Status DC Potassium Chloride (KCl) 40 meq ONCE ONCE PO Last administered on 06/23/17 07 :16; Start 06/23/17 at 06:45; Stop 06/23/17 at 06:46; Status DC Sodium Chloride (NS Flush) 2 ml BID IV FLUSH ; Start 06/23/17 at 09:00; Stop at 09:00; Status DC Sodium Chloride (NS Flush) 2 ml UNSCH PRN IVF FLUSH AFTER USING IV ACCESS; Start 06/23/17 at 07:00; Stop 06/23/17 at 07:00; Status DC Sodium Chloride 1,000 ml @ 100 mls/hr Q10H IV Last administered on 06/23/17 07:17; Start 06/23/17 at 06:46; Stop 06/23/17 at 09:56; Status DC Sodium Chloride (NS Flush) 2 ml UNSCH PRN IV FLUSH FLUSH AFTER USING IV ACCESS ; Start 06/23/17 at 07:00; Stop 06/23/17 at 09:35; Status DC Sodium Chloride (NS Flush) 2 ml BID IV FLUSH ; Start 06/23/17 at 09:00; Stop at 09:35; Status DC Naloxone HCl (Narcan Inj) 0.4 mg UNSCH PRN IV PUSH SEE LABEL COMMENTS; Start at 07:00; Stop 06/23/17 at 09:46; Status DC Iohexol (Omnipaque 350 Inj) 97 ml STK-MED ONCE IV PUSH Last administered on 06:49; Start 06/23/17 at 06:49; Stop 06/23/17 at 06:50; Status DC Sodium Chloride 1,000 ml @ 150 mls/hr Q6H40M IV Last administered on 06:13; Start 06/23/17 at 08:54; Stop 06/24/17 at 09:46; Status DC Sodium Chloride (NS Flush) 2 ml UNSCH PRN IV FLUSH FLUSH AFTER USING IV ACCESS ; Start 06/23/17 at 09:00; Stop 06/23/17 at 09:45; Status DC Sodium Chloride (NS Flush) 2 ml BID IV FLUSH ; Start 06/23/17 at 09:00; Stop at 09:45; Status DC Acetaminophen (Tylenol) 650 mg Q4H PRN PO TEMPERATURE > 101 F; Start 06/23/17 at 09:00; Stop 06/23/17 at 09:45; Status DC Ondansetron HCl (Zofran Inj) 4 mg Q6H PRN IV PUSH NAUSEA; Start 06/23/17 at 09: 00; Stop 06/23/17 at 09:47; Status DC Albuterol/ Ipratropium (Duoneb Neb) 1 ampule Q4HR NEB PRN INH SHORTNESS OF BREATH Last administered on 06/24/17 03:32; Start 06/23/17 at 09:00 Enoxaparin Sodium (Lovenox Inj) 40 mg Q24H SQ Last administered on 06/24/17 11 :59; Start 06/23/17 at 12:00 Sodium Chloride (NS Flush) 2 ml UNSCH PRN IV FLUSH FLUSH AFTER USING IV ACCESS ; Start 06/23/17 at 09:00 Sodium Chloride (NS Flush) 2 ml BID IV FLUSH Last administered on 06/25/17 08: 52; Start 06/23/17 at 09:00 Acetaminophen (Tylenol) 650 mg Q4H PRN PO TEMP > 100.4 Last administered on 16:15; Start 06/23/17 at 09:00 Ondansetron HCl (Zofran Inj) 4 mg Q6H PRN IVP NAUSEA OR VOMITING Last administered on 06/24/17 16:16; Start 06/23/17 at 09:00 Prochlorperazine (Compazine Supp) 25 mg Q12H PRN RECTAL NAUSEA OR VOMITING; Start 06/23/17 at 09:00 Temazepam (Restoril) 15 mg HS PRN PO INSOMNIA; Start 06/23/17 at 09:00 Acetaminophen (Tylenol) 650 mg Q6H PRN PO PAIN SCALE 1 TO 2; Start 06/23/17 at 09:00 Oxycodone/ Acetaminophen (Percocet 5-325 Mg) 1 tab Q6H PRN PO PAIN SCALE 3 TO 5; Start 06/23/17 at 09:00 Oxycodone/ Acetaminophen (Percocet 10-325 Mg) 1 tab Q6H PRN PO PAIN SCALE 6 TO 10; Start 06/23/17 at 09:00 Morphine Sulfate (Morphine Inj) 2 mg Q3H PRN IV PUSH Pain 3-5; if unable to take PO; Start 06/23/17 at 09:00 Morphine Sulfate (Morphine Inj) 4 mg Q3H PRN IV PUSH Pain 6-10;if unable to take PO; Start 06/23/17 at 09:00 Naloxone HCl (Narcan Inj) 0.4 mg UNSCH PRN IV PUSH SEE LABEL COMMENTS; Start at 09:00 Senna/Docusate Sodium ([place]-Colace) 1 tab BID PO Last administered on 08:39; Start 06/23/17 at 09:00; Stop 06/24/17 at 09:58; Status DC Magnesium Hydroxide (Milk Of Magnesia Liq) 30 ml Q12H PRN PO MILD - MODERATE CONSTIPATION; Start 06/23/17 at 09:00 Sennosides (Senokot) 17.2 mg Q12H PRN PO MODERATE - SEVERE CONSTIPATION; Start 06/23/17 at 09:00; Stop 06/24/17 at 09:58; Status DC Bisacodyl (Dulcolax Supp) 10 mg DAILY PRN RECTAL SEVERE CONSITIPATION; Start at 09:00; Stop 06/24/17 at 09:58; Status DC Lactulose (Lactulose Liq) 30 ml DAILY PRN PO SEVERE CONSITIPATION; Start at 09:00; Stop 06/24/17 at 09:58; Status DC Pharmacy Profile Note 0 ml @ 0 mls/hr UNSCH OTHER ; Start 06/23/17 at 09:15 Piperacillin Sod/ Tazobactam Sod 100 ml @ 200 mls/hr Q8H IV Last administered on 06/25/17 02:55; Start 06/23/17 at 12:00 Guaifenesin (Mucinex Er) 600 mg BID PO Last administered on 06/24/17 08:38; Start 06/23/17 at 11:00; Stop 06/24/17 at 16:35; Status DC Pantoprazole Sodium (Protonix) 40 mg ONCE ONCE PO Last administered on 10:56; Start 06/23/17 at 11:00; Stop 06/23/17 at 11:01; Status DC Pantoprazole Sodium (Protonix) 40 mg DAILY PO Last administered on 06/25/17 08 :51; Start 06/24/17 at 09:00 Allopurinol (Zyloprim) 300 mg DAILY PO Last administered on 06/25/17 08:51; Start 06/24/17 at 09:00 Losartan Potassium (Cozaar) 50 mg DAILY PO Last administered on 06/25/17 08:51 ; Start 06/24/17 at 09:00 Oseltamivir Phosphate (Tamiflu) 75 mg BID PO Last administered on 06/25/17 08: 51; Start 06/23/17 at 21:00 Triamterene/HCTZ (Maxzide 37.5-25 Mg) 1 tab DAILY PO Last administered on 08:51; Start 06/24/17 at 09:00 Methylphenidate HCl (Methylin Sr) 40 mg DAILY PO ; Start 06/23/17 at 12:00 Clonidine (Catapres) 0.1 mg Q4H PRN PO SBP>160, DBP>90; Start 06/23/17 at 09:15 Vancomycin HCl 1500 mg/Sodium Chloride 515 ml @ 257.5 mls/ hr Q12H IV Last administered on 06/24/17 03:32; Start 06/23/17 at 15:00; Stop 06/24/17 at 19:03 ; Status DC Miscellaneous Information SPECIFIC LAB TO BE LISANDRA... ONCE ONCE .XX ; Start 06/24 at 14:45; Stop 06/24/17 at 14:46; Status DC Pneumococcal Polyvalent Vaccine (Pneumovax-23 Inj) 25 mcg ONCE ONCE IM ; Start 06/24/17 at 10:00; Stop 06/24/17 at 10:00; Status DC Acyclovir Sodium 700 mg/Sodium Chloride 100 ml @ 100 mls/hr Q8H IV Last administered on 06/25/17 03:35; Start 06/23/17 at 20:00 Doxycycline Hyclate (Vibramycin) 100 mg BID PO Last administered on 06/25/17 09:00; Start 06/23/17 at 21:00 Iohexol (Omnipaque 350 Inj) 50 ml STK-MED ONCE IVCONTRAST Last administered on 06/23/17 19:39; Start 06/23/17 at 19:39; Stop 06/23/17 at 19:40; Status DC Sodium Chloride ([place]) 2 spray Q4H PRN EACH NARE NASAL CONGESTION Last administered on 06/23/17 23:54; Start 06/23/17 at 23:30 Benzonatate (Tessalon) 100 mg TID PRN PO cough Last administered on 06/25/17 05:45; Start 06/24/17 at 16:45 Vancomycin HCl 1500 mg/Sodium Chloride 515 ml @ 257.5 mls/ hr Q8H IV Last administered on 06/25/17 04:54; Start 06/24/17 at 20:00 Miscellaneous Information SPECIFIC LAB TO BE DRAWN:VANCO TROUGH DATE TO... ONCE ONCE .XX ; Start 06/26/17 at 03:45; Stop 06/26/17 at 03:46 Acetaminophen (Tylenol Supp) 650 mg ONCE ONCE RECTAL Last administered on 06/24 21:11; Start 06/24/17 at 20:45; Stop 06/24/17 at 20:47; Status DC Prochlorperazine Edisylate (Compazine Inj) 5 mg ONCE ONCE IV PUSH Last administered on 06/24/17 21:12; Start 06/24/17 at 20:45; Stop 06/24/17 at 20:47 ; Status DC Fluticasone Propionate (Flonase Will Spr) 1 spray BID PRN NASAL sinus pressure; Start 06/25/17 at 00:30 Latanoprost (Xalatan 0.005% Opth Soln) 1 drop HS EACH EYE ; Start 06/25/17 at 21 :00 Timolol Maleate (Timoptic 0.5% Opth Soln) 1 drop DAILY EACH EYE ; Start at 09:21 A/P Problem List: (1) Fever and chills ICD Code: R50.9 - Fever, unspecified (2) Viral syndrome ICD Code: B34.9 - Viral infection, unspecified (3) Sepsis ICD Code: A41.9 - Sepsis, unspecified organism Status: Acute (4) Febrile illness, acute ICD Code: R50.9 - Fever, unspecified Status: Acute (5) Thrombocytopenia ICD Code: D69.6 - Thrombocytopenia, unspecified Assessment and Plan 32-year-old man with SIRS possible Severe Sepsis Persistent fever ? Meningoencephalitis Atypical pneumonia Leucopenia and thrombocytopenia Currently on Zosyn, Vanco, doxy and acyclovir Appreciate input from infectious disease specialist Hepatitis panel negative, HIV pending [place] screen negative CMV PCR pending Lumbar puncture pending CAN BE DONE MONDAY IF STILL NEEDED BY ID Check Lyme disease PCR as patient reported tick bite 06/05/17 Hypertension Continue current medications Testicular edema/swelling Hep-Lock IV fluid Elevated DVT prophylaxis: Lovenox HYPOKALEMIA WILL REPLACE CONTINUE SUPPORTIVE CARE Problem Qualifiers (1) Sepsis: Qualified Codes: A41.9 - Sepsis, unspecified organism Venkatesh Alfaro DO Jun 25, 2017 09:56
[2017-06-25] MEDS ORDERED: guaiFENesin/DEXTROMETHORPHAN 200 MG/20 MG/10 ML CUP PO PRN (10:00)
[2017-06-25] MEDS: LORATADINE/PSEUDOEPHEDRINE 5 MG/120 MG TAB PO SCH ×2 (10:26→20:01)
[2017-06-25] MEDS: TIMOLOL MALEATE 0.5% OPHT SOLN 5 ML BTL EACH EYE SCH (10:27)
[2017-06-25] MEDS: ENOXAPARIN SODIUM 40 MG/0.4 ML SYRINGE SQ SCH (10:27)
[2017-06-25] MEDS: LATANOPROST 0.005% OPHT SOLN 2.5 ML BTL EACH EYE SCH (20:01)
[2017-06-25] MEDS ORDERED: CETIRIZINE HCL 10 MG TAB PO SCH (21:00)
[2017-06-26] VITALS (9 sets, daily range): BP systolic 120–154; BP diastolic 66–87; PULSE 84–96; RESP 16–17; TEMP 97.3–99.1; O2SAT 94–100
[2017-06-26] MEDS ORDERED: PHARMACY ORDERED LAB ONE (03:45)
[2017-06-26] MEDS: BENZONATATE 100 MG CAP PO PRN (05:01)
[2017-06-26] MEDS: PIPERACIL-TAZO 4.5 GM PREMIX 100 ML IV SCH (05:01)
[2017-06-26 05:27] LABS: BASOPHIL # 0.1 TH/MM3 (0-0.2); BASOPHIL % 0.8 % (0.0-2.0); EOSINOPHIL # 0.1 TH/MM3 (0-0.4); EOSINOPHIL % 1.3 % (0.0-4.0); HEMATOCRIT 34.2 % (39.0-51.0); LYMPH % 47.1 % (9.0-44.0); LYMPHOCYTE # 2.9 TH/MM3 (1.0-4.8); MEAN CELL VOLUME 93.8 FL (80.0-100.0); MEAN CORPUSCULAR HEMOGLOBIN 31.6 PG (27.0-34.0); MEAN CORPUSCULAR HGB CONC 33.7 % (32.0-36.0); MONO % 18.9 % (0.0-8.0); NEUT % 31.9 % (16.0-70.0); PLATELET COUNT 121 TH/MM3 (150-450); RED BLOOD COUNT 3.64 MIL/MM3 (4.50-5.90); RED CELL DISTRIBUTION WIDTH 14.5 % (11.6-17.2); WHITE BLOOD COUNT 6.2 TH/MM3 (4.0-11.0)
[2017-06-26 05:42] LABS: HEMO FLAGS AUTO DIFF
[2017-06-26] MEDS: ACYCLOVIR INJ 700 MG in SODIUM CHLORIDE 0.9% INJ 100 ML IV SCH (05:48)
[2017-06-26 06:02] LABS: ALKALINE PHOSPHATASE 127 U/L (45-117); ALT (GPT) 115 U/L (12-78); ANION GAP 8 MEQ/L (5-15); AST (GOT) 110 U/L (15-37); BICARBONATE 27.2 MEQ/L (21.0-32.0); BLOOD UREA NITROGEN 15 MG/DL (7-18); CHLORIDE 100 MEQ/L (98-107); GLOMERULAR FILTRATION RATE 113 ML/MIN (>89); MAGNESIUM 2.2 MG/DL (1.5-2.5); POTASSIUM 3.4 MEQ/L (3.5-5.1); SODIUM (NA) 135 MEQ/L (136-145); TOTAL BILIRUBIN ADULT 0.6 MG/DL (0.2-1.0)
[2017-06-26] MEDS: VANCOMYCIN INJ 1,500 MG in SODIUM CHLORID 0.9% 500 ML INJ 500 ML IV SCH (06:51)
[2017-06-26 08:18] LABS: NEUTROPHIL # MANUAL DIFF 2.9 TH/MM3 (1.8-7.7); PLATELET ESTIMATE SMEAR LOW (NORMAL); PLATELET MORPHOLOGY NORMAL (NORMAL); POLYS (SEG NEUTROPHILS) 46 % (16-70); SCAN/DIFF FINAL DIFF MANUAL; WBC DIFF SAMPLE 100
[2017-06-26] MEDS: METHYLPHENIDATE HCL 10 MG EXTENDED RELEASE TAB PO SCH (09:00)
[2017-06-26] MEDS: PANTOPRAZOLE SOD 40 MG DELAYED RELEASE TAB PO SCH (09:00)
[2017-06-26] MEDS: DOXYCYCLINE HYCLATE 100 MG CAP PO SCH (09:08)
[2017-06-26] MEDS: TRIAMTERENE/HCTZ 37.5 MG/25 MG TAB PO SCH (09:08)
[2017-06-26] MEDS: ALLOPURINOL 300 MG TAB PO SCH (09:09)
[2017-06-26] MEDS: LORATADINE/PSEUDOEPHEDRINE 5 MG/120 MG TAB PO SCH ×2 (09:09→21:56)
[2017-06-26] MEDS: OSELTAMIVIR PHOSPHATE 75 MG CAP PO SCH (09:09)
[2017-06-26] MEDS: LOSARTAN 50 MG TAB PO SCH (09:09)
[2017-06-26] MEDS: SODIUM CHLORIDE 0.9% FLUSH 10 ML FLUSH IV FLUSH SCH ×2 (09:12→21:55)
[2017-06-26] MEDS: TIMOLOL MALEATE 0.5% OPHT SOLN 5 ML BTL EACH EYE SCH (09:19)
[2017-06-26] MEDS: ENOXAPARIN SODIUM 40 MG/0.4 ML SYRINGE SQ SCH (12:00)
--- NOTE | 2017-06-26 12:58 | HHI.IDPN ---
Subjective Subjective Remarks is a 32-year-old male presents to the emergency department by private transportation the care of his mother for evaluation of fever. Patient states approximately 6 days ago he started noticing fever and chills. Patient was seen in the emergency department and diagnosed with a viral syndrome and told to take [id number] medications for symptomatic relief. Patient states he continued to have symptoms so he went to urgent care and was diagnosed with a possible upper respiratory infection. Patient was placed on Levaquin and Tamiflu took 2 days of Levaquin symptoms have persisted and continues to have fever. Patient denies headache visual disturbance. He reports dry non productive cough. Mild headache/sinus pressure. He reports a cold sore since fever started and inability to eat. He is requesting parental nutrition so he can avoid eating. He denies any skin lesions or joint pains. He reports back pain but no worse than in past. He reports he was doubled on sulfasalazine few months back but recently after fevers asked to discontinue this medication. No new medications started. He does report taking tylenol and ibuprofen round the clock. In the ED started on Zosyn, Vanco IV and Levaquin. His fevers persist and ID consulted for evaluation and Mment of sepsis in an IC pt. Overnight events reviewed No fevers No rash No diarrhea Oral sores resolved. No throat pain. Complains of post nasal discharge. No headache, visual changes, N/V. Antibiotics Zosyn IV Vanco IV Acyclovir IV Doxy oral. Lines Line sites with no e.o infection Past Medical History ? RA Allergies: Coded Allergies: No Known Allergies (Unverified , 06/21/17) Objective . Vital Signs Date Time Temp Pulse Resp B/P (MAP) Pulse Ox O2 Delivery O2 Flow Rate FiO2 06/26/17 08:48 94 06/26/17 08:00 97.8 84 17 120/66 (84) 98 06/26/17 04:00 99.1 93 16 132/66 (88) 95 06/26/17 04:00 Room Air 06/26/17 00:00 Room Air 06/26/17 00:00 98.5 95 16 130/73 (92) 94 06/25/17 20:00 98.0 102 18 133/76 (95) 98 06/25/17 20:00 96 06/25/17 20:00 Room Air 10/1/17 18:09 92 06/25/17 17:01 99.0 98 18 123/70 (87) 96 . Laboratory Tests Test 06/26/17 04:56 White Blood Count 6.2 TH/MM3 Red Blood Count 3.64 MIL/MM3 Hemoglobin 11.5 GM/DL Hematocrit 34.2 % Mean Corpuscular Volume 93.8 FL Mean Corpuscular Hemoglobin 31.6 PG Mean Corpuscular Hemoglobin Concent 33.7 % Red Cell Distribution Width 14.5 % Platelet Count 121 TH/MM3 Mean Platelet Volume 11.4 FL Neutrophils (%) (Auto) 31.9 % Lymphocytes (%) (Auto) 47.1 % Monocytes (%) (Auto) 18.9 % Eosinophils (%) (Auto) 1.3 % Basophils (%) (Auto) 0.8 % Neutrophils # (Auto) 2.0 TH/MM3 Lymphocytes # (Auto) 2.9 TH/MM3 Monocytes # (Auto) 1.2 TH/MM3 Eosinophils # (Auto) 0.1 TH/MM3 Basophils # (Auto) 0.1 TH/MM3 CBC Comment AUTO DIFF Differential Total Cells Counted 100 Neutrophils % (Manual) 46 % Lymphocytes % 45 % Monocytes % 9 % Neutrophils # (Manual) 2.9 TH/MM3 Differential Comment FINAL DIFF MANUAL Platelet Estimate LOW Platelet Morphology Comment NORMAL Red Cell Morphology Comment NORMAL Laboratory Tests Test 06/26/17 04:56 Blood Urea Nitrogen 15 MG/DL Creatinine 0.79 MG/DL Random Glucose 84 MG/DL Total Protein 6.6 GM/DL Albumin 2.8 GM/DL Calcium Level 8.0 MG/DL Phosphorus Level 2.3 MG/DL Magnesium Level 2.2 MG/DL Alkaline Phosphatase 127 U/L Aspartate Amino Transf (AST/SGOT) 110 U/L Alanine Aminotransferase (ALT/SGPT) 115 U/L Total Bilirubin 0.6 MG/DL Sodium Level 135 MEQ/L Potassium Level 3.4 MEQ/L Chloride Level 100 MEQ/L Carbon Dioxide Level 27.2 MEQ/L Anion Gap 8 MEQ/L Estimat Glomerular Filtration Rate 113 ML/MIN Microbiology Date/Time Source Procedure Growth Status 06/23/17 15:20 Nasal Aspirate Influenza Types A,B Antigen ([facility]) - Final NEGATIVE FOR FLU A AND B ANTIGEN.... Complete Imaging Last Impressions Chest X-Ray 06/23/17 2330 Signed Impressions: Service Date/Time: Friday, June 23, 2017 03:51 - CONCLUSION: No acute disease. Tim Foster MD Neck CT 06/23/17 0000 Signed Impressions: Service Date/Time: Friday, June 23, 2017 19:27 - CONCLUSION: 1. No evidence of abscess. 2. Shotty nonspecific lymph nodes. Please see above. Pan Weber MD Head CT 06/23/17 0000 Signed Impressions: Service Date/Time: Friday, June 23, 2017 19:23 - CONCLUSION: No intracranial abnormality demonstrated. Mild ethmoid sinus disease. Pan Weber MD Chest CT 06/23/17 0000 Signed Impressions: Service Date/Time: Friday, June 23, 2017 19:27 - CONCLUSION: 1. Negative noncontrast CT of the chest. 2. Liver is mildly fatty infiltrated and is probably mildly enlarged. 3. Dextroconvex curvature of the thoracic spine. Pan Weber MD Abdomen/Pelvis CT 06/23/17 0000 Signed Impressions: Service Date/Time: Friday, June 23, 2017 06:48 - CONCLUSION: Small hypodensity within the posterior spleen probably of no clinical significance. There are a few tiny mesenteric lymph nodes and one 2.3 x 3.1 cm periportal lymph node. There is some minimal stranding around the second part of the duodenum correlate for peptic ulcer disease. No abscess identified Vick Russell MD Physical Exam GENERAL: Obese well-developed patient, in no apparent distress. SKIN: No rashes, ecchymoses or lesions. Cool and dry. HEAD: Atraumatic. Normocephalic. No temporal or scalp tenderness. EYES: Pupils equal round and reactive. Extraocular motions intact. No scleral icterus. No injection or drainage. ENT: Nose without bleeding, purulent drainage or septal hematoma. Throat without erythema, tonsillar hypertrophy or exudate. Uvula midline. Airway patent. NECK: Trachea midline. Supple, nontender, no meningeal signs. CARDIOVASCULAR: Regular rate and rhythm without murmurs, gallops, or rubs. RESPIRATORY: Clear to auscultation. Breath sounds equal bilaterally. No wheezes , rales, or rhonchi. GASTROINTESTINAL: Abdomen soft, non-tender, nondistended. MUSCULOSKELETAL: Extremities without clubbing, cyanosis, or edema. NEUROLOGICAL: Awake and alert. Cranial nerves II through XII intact. Motor and sensory grossly within normal limits. Five out of 5 muscle strength in all muscle groups. Normal speech. Psych cooperative, smiling today. IV line sites with no e.o infection. Assessment & Plan Remarks SIRS possible Severe Sepsis (fever, leucopenia, elevated lactic acid, meningitis ) Persistent fever ? Meningoencephalitis (fever, headache, Neck stiffness, Cold sore (HSV) in mouth. Atypical pneumonia Abnormal LFTs Leucopenia and thrombocytopenia: meds, sepsis. Recs DC Zosyn IV DC Vanco IV (continue target 15-20 ? meningitis) DC Doxy Continue Acyclovir change to oral. Start otal augmentin CT Chest, Neck and Brain all negative. Images reviewed with family. Patient does not want MRI unless sedated as he is phobic. Patient was wanting to be discharged home in next day or so. Since he clinically appears improved with normal WBC, no fevers since acyclovir added I offered the patient 2 options: 1. transition to oral acyclovir and augmentin today and if no fevers or clinical change overnight ok to discharge in am on oral options for 7 days. I discussed with him if any change he will have to come back to hospital so we can pursue a complete workup. At present clinical suspicion of meningitis is very low. 2. Proceed with LP, HSV PCR may take 2-3 days at which point transition to above oral plan. Patient would like to proceed with option 1. Discussed in presence of [employer]oper Jami. Follow cultures Follow clinically. reviewed possibilities of causes of low WBC, low platelets and abnormal LFTs. Leucopenia and low platelets could be from medication (sulfasalazine,sepsis) Abnormal LFTs can be from sepsis, sulfasalazine or fatty liver related. Patient will need follow up LFTs as outpt with PCP. He has no GI symptoms at present time. Patient and Mom were shown labs, imaging and cultures using a computer on wheels in presence of manager mobility Jami. All questions answered to their satisfaction. Harriett Ulloa MD Jun 26, 2017 12:58
--- NOTE | 2017-06-26 14:28 | HHI.PR ---
Subjective Remarks Follow up sepsis, pneumonia. Patient reports cough, but has no other complaints at this time. Denies chest pain, dyspnea, nausea, vomiting. Objective Vitals Vital Signs Date Time Temp Pulse Resp B/P (MAP) Pulse Ox O2 Delivery O2 Flow Rate FiO2 06/26/17 12:00 97.5 87 17 154/70 (98) 97 06/26/17 08:48 94 06/26/17 08:00 97.8 84 17 120/66 (84) 98 06/26/17 04:00 99.1 93 16 132/66 (88) 95 06/26/17 04:00 Room Air 06/26/17 00:00 Room Air 06/26/17 00:00 98.5 95 16 130/73 (92) 94 06/25/17 20:00 98.0 102 18 133/76 (95) 98 06/25/17 20:00 96 06/25/17 20:00 Room Air 06/25/17 18:09 92 06/25/17 17:01 99.0 98 18 123/70 (87) 96 I/O 06/25/17 06/25/17 06/25/17 06/26/17 06/26/17 06/26/17 07:00 15:00 23:00 07:00 15:00 23:00 Intake Total 815 ml 600 ml Output Total 300 ml 1231 ml 600 ml Balance 515 ml -631 ml -600 ml Intake Oral 600 ml IV Total 815 ml Output Urine Total 300 ml 1230 ml 600 ml Stool Total 1 ml Bladder Scan Volume Amount 150 ml Result Diagram: 06/26/17 0456 06/26/17 0456 Imaging Last Impressions Chest X-Ray 06/23/17 0339 Signed Impressions: Service Date/Time: Friday, June 23, 2017 03:51 - CONCLUSION: No acute disease. Tim Foster MD Neck CT 06/23/17 0000 Signed Impressions: Service Date/Time: Friday, June 23, 2017 19:27 - CONCLUSION: 1. No evidence of abscess. 2. Shotty nonspecific lymph nodes. Please see above. Pan Weber MD Head CT 06/23/17 0000 Signed Impressions: Service Date/Time: Friday, June 23, 2017 19:23 - CONCLUSION: No intracranial abnormality demonstrated. Mild ethmoid sinus disease. Pan Weber MD Chest CT 06/23/17 0000 Signed Impressions: Service Date/Time: Friday, June 23, 2017 19:27 - CONCLUSION: 1. Negative noncontrast CT of the chest. 2. Liver is mildly fatty infiltrated and is probably mildly enlarged. 3. Dextroconvex curvature of the thoracic spine. Pan Weber MD Abdomen/Pelvis CT 06/23/17 0000 Signed Impressions: Service Date/Time: Friday, June 23, 2017 06:48 - CONCLUSION: Small hypodensity within the posterior spleen probably of no clinical significance. There are a few tiny mesenteric lymph nodes and one 2.3 x 3.1 cm periportal lymph node. There is some minimal stranding around the second part of the duodenum correlate for peptic ulcer disease. No abscess identified Vick Russell MD Objective Remarks General: No acute distress. Sitting up in a chair. Heart: Regular rate and rhythm. No murmur. Lungs: Clear to auscultation bilaterally. No wheezes, rales, or rhonchi. Breathing is nonlabored. Abdomen: Soft, nontender, nondistended. Extremities: No lower extremity edema. Psych: Alert and oriented. Procedures None Urinary Catheter: No Vascular Central Line Catheter: No A/P Problem List: (1) Fever and chills ICD Code: R50.9 - Fever, unspecified (2) Viral syndrome ICD Code: B34.9 - Viral infection, unspecified (3) Sepsis ICD Code: A41.9 - Sepsis, unspecified organism Status: Acute (4) Febrile illness, acute ICD Code: R50.9 - Fever, unspecified Status: Acute (5) Thrombocytopenia ICD Code: D69.6 - Thrombocytopenia, unspecified Assessment and Plan 1. Sepsis, pneumonia: Appreciate infectious disease recommendations. Discussed with Dr. Ulloa. Stop Zosyn, Vancomycin, Doxycycline. Continue oral Acyclovir, Augmentin. 2. Hypokalemia: Improving. Supplement potassium. 3. Hypertension: Continue Losartan, Maxzide. 4. GI prophylaxis: Protonix. 5. DVT prophylaxis: Lovenox. Discharge Planning Plan for discharge home tomorrow on 7 day course of oral Augmentin/Acyclovir if patient remains afebrile. Problem Qualifiers (1) Sepsis: Qualified Codes: A41.9 - Sepsis, unspecified organism Stoverink,Olayinka D. MD Jun 26, 2017 14:28
[2017-06-26] MEDS ORDERED: POTASSIUM CHLORIDE 10 MEQ CONTROLLED RELEASE TAB PO ONE (14:45)
[2017-06-26] MEDS: ACYCLOVIR 200 MG CAP PO SCH ×2 (16:27→21:59)
[2017-06-26] MEDS: CETIRIZINE HCL 10 MG TAB PO SCH (16:27)
[2017-06-26] MEDS: AMOXICILLIN/CLAVULANATE K 875 MG TAB PO SCH (21:53)
[2017-06-26] MEDS: LATANOPROST 0.005% OPHT SOLN 2.5 ML BTL EACH EYE SCH (21:54)
[2017-06-27] VITALS (8 sets, daily range): BP systolic 138–153; BP diastolic 55–90; PULSE 87–95; RESP 16–20; TEMP 96.8–97.8; O2SAT 96–100
[2017-06-27] MEDS: ACYCLOVIR 200 MG CAP PO SCH ×3 (05:58→21:22)
[2017-06-27] MEDS: BENZONATATE 100 MG CAP PO PRN ×2 (05:58→19:35)
[2017-06-27] MEDS: LOSARTAN 50 MG TAB PO SCH (08:52)
[2017-06-27] MEDS: AMOXICILLIN/CLAVULANATE K 875 MG TAB PO SCH ×2 (08:52→21:12)
[2017-06-27] MEDS: ALLOPURINOL 300 MG TAB PO SCH (08:52)
[2017-06-27] MEDS: CETIRIZINE HCL 10 MG TAB PO SCH (08:52)
[2017-06-27] MEDS: LORATADINE/PSEUDOEPHEDRINE 5 MG/120 MG TAB PO SCH ×2 (08:52→21:13)
[2017-06-27] MEDS: PANTOPRAZOLE SOD 40 MG DELAYED RELEASE TAB PO SCH (08:52)
[2017-06-27] MEDS: TRIAMTERENE/HCTZ 37.5 MG/25 MG TAB PO SCH (08:53)
[2017-06-27] MEDS: METHYLPHENIDATE HCL 10 MG EXTENDED RELEASE TAB PO SCH (08:53)
[2017-06-27] MEDS: TIMOLOL MALEATE 0.5% OPHT SOLN 5 ML BTL EACH EYE SCH (09:02)
[2017-06-27] MEDS: SODIUM CHLORIDE 0.9% FLUSH 10 ML FLUSH IV FLUSH SCH ×2 (09:03→21:14)
[2017-06-27 10:51] LABS: ALKALINE PHOSPHATASE 129 U/L (45-117); ALT (GPT) 227 U/L (12-78); ANION GAP 8 MEQ/L (5-15); AST (GOT) 234 U/L (15-37); BICARBONATE 27.1 MEQ/L (21.0-32.0); BLOOD UREA NITROGEN 13 MG/DL (7-18); CHLORIDE 104 MEQ/L (98-107); GLOMERULAR FILTRATION RATE 110 ML/MIN (>89); POTASSIUM 3.4 MEQ/L (3.5-5.1); SODIUM (NA) 139 MEQ/L (136-145); TOTAL BILIRUBIN ADULT 0.6 MG/DL (0.2-1.0)
--- NOTE | 2017-06-27 11:36 | HHI.PR ---
Subjective Remarks Follow-up sepsis, pneumonia. Patient has no complaints at this time. Cough medicine is helping. He did have some chest pain this morning associated with taking a deep breath. That has resolved. No abdominal pain, nausea, vomiting. Objective Vitals Vital Signs Date Time Temp Pulse Resp B/P (MAP) Pulse Ox O2 Delivery O2 Flow Rate FiO2 06/27/17 11:21 96 21 06/27/17 08:00 Room Air 06/27/17 08:00 97.8 87 20 138/84 (102) 96 06/27/17 04:00 Room Air 06/27/17 04:00 97.7 94 16 141/86 (104) 97 06/27/17 00:00 97.4 87 16 153/87 (109) 100 06/27/17 00:00 Room Air 06/26/17 20:00 97.3 96 16 153/87 (109) 100 06/26/17 20:00 Room Air 06/26/17 17:44 98.0 06/26/17 16:00 98.0 86 17 136/84 (101) 96 06/26/17 12:00 97.5 87 17 154/70 (98) 97 I/O 06/26/17 06/26/17 06/26/17 06/27/17 06/27/17 06/27/17 07:00 15:00 23:00 07:00 15:00 23:00 Intake Total 960 ml Output Total 600 ml 1150 ml 700 ml Balance -600 ml -190 ml -700 ml Intake Oral 960 ml Output Urine Total 600 ml 1150 ml 700 ml # Voids 4 # Bowel Movements 2 Result Diagram: 06/26/17 0456 06/27/17 0845 Imaging Last Impressions Chest X-Ray 06/23/17 0339 Signed Impressions: Service Date/Time: Friday, June 23, 2017 03:51 - CONCLUSION: No acute disease. Tim Foster MD Neck CT 06/23/17 0000 Signed Impressions: Service Date/Time: Friday, June 23, 2017 19:27 - CONCLUSION: 1. No evidence of abscess. 2. Shotty nonspecific lymph nodes. Please see above. Pan Weber MD Head CT 06/23/17 0000 Signed Impressions: Service Date/Time: Friday, June 23, 2017 19:23 - CONCLUSION: No intracranial abnormality demonstrated. Mild ethmoid sinus disease. Pan Weber MD Chest CT 06/23/17 0000 Signed Impressions: Service Date/Time: Friday, June 23, 2017 19:27 - CONCLUSION: 1. Negative noncontrast CT of the chest. 2. Liver is mildly fatty infiltrated and is probably mildly enlarged. 3. Dextroconvex curvature of the thoracic spine. Pan Weber MD Abdomen/Pelvis CT 06/23/17 0000 Signed Impressions: Service Date/Time: Friday, June 23, 2017 06:48 - CONCLUSION: Small hypodensity within the posterior spleen probably of no clinical significance. There are a few tiny mesenteric lymph nodes and one 2.3 x 3.1 cm periportal lymph node. There is some minimal stranding around the second part of the duodenum correlate for peptic ulcer disease. No abscess identified Vick Russell MD Objective Remarks General: No acute distress. Sitting up in a chair. Heart: Regular rate and rhythm. No murmur. Lungs: Clear to auscultation bilaterally. No wheezes, rales, or rhonchi. Breathing is nonlabored. Abdomen: Soft, nontender, nondistended. Extremities: No lower extremity edema. Psych: Alert and oriented. Procedures None Urinary Catheter: No Vascular Central Line Catheter: No A/P Problem List: (1) Fever and chills ICD Code: R50.9 - Fever, unspecified (2) Viral syndrome ICD Code: B34.9 - Viral infection, unspecified (3) Sepsis ICD Code: A41.9 - Sepsis, unspecified organism Status: Acute (4) Febrile illness, acute ICD Code: R50.9 - Fever, unspecified Status: Acute (5) Thrombocytopenia ICD Code: D69.6 - Thrombocytopenia, unspecified (6) Elevated LFTs ICD Code: R79.89 - Other specified abnormal findings of blood chemistry Assessment and Plan 1. Sepsis, pneumonia: Appreciate infectious disease recommendations. Discussed with Dr. Ulloa. Continue oral Acyclovir, Augmentin. 2. Hypokalemia: Supplement potassium. 3. Hypertension: Continue Losartan, Maxzide. 4. GI prophylaxis: Protonix. 5. DVT prophylaxis: Lovenox. 6. Elevated LFTs: Check liver ultrasound. Consult gastroenterology. Discharge Planning Pending GI evaluation, elevated LFTs. Problem Qualifiers (1) Sepsis: Qualified Codes: A41.9 - Sepsis, unspecified organism Olayinka Aviles MD Jun 27, 2017 11:36
[2017-06-27] MEDS ORDERED: POTASSIUM CHLORIDE 10 MEQ CONTROLLED RELEASE TAB PO ONE (12:00)
[2017-06-27] MEDS: ENOXAPARIN SODIUM 40 MG/0.4 ML SYRINGE SQ SCH (12:42)
--- NOTE | 2017-06-27 15:12 | HHI.IDPN ---
Subjective Subjective Remarks is a 32-year-old male presents to the emergency department by private transportation the care of his mother for evaluation of fever. Patient states approximately 6 days ago he started noticing fever and chills. Patient was seen in the emergency department and diagnosed with a viral syndrome and told to take [id number] medications for symptomatic relief. Patient states he continued to have symptoms so he went to urgent care and was diagnosed with a possible upper respiratory infection. Patient was placed on Levaquin and Tamiflu took 2 days of Levaquin symptoms have persisted and continues to have fever. Patient denies headache visual disturbance. He reports dry non productive cough. Mild headache/sinus pressure. He reports a cold sore since fever started and inability to eat. He is requesting parental nutrition so he can avoid eating. He denies any skin lesions or joint pains. He reports back pain but no worse than in past. He reports he was doubled on sulfasalazine few months back but recently after fevers asked to discontinue this medication. No new medications started. He does report taking tylenol and ibuprofen round the clock. In the ED started on Zosyn, Vanco IV and Levaquin. His fevers persist and ID consulted for evaluation and Mment of sepsis in an IC pt. Overnight events reviewed No fevers No rash No diarrhea No headache, visual changes, N/V. Antibiotics Augmentin oral. Acyclovir oral. Lines Line sites with no e.o infection Past Medical History ? RA Allergies: Coded Allergies: No Known Allergies (Unverified , 06/21/17) Objective . Vital Signs Date Time Temp Pulse Resp B/P (MAP) Pulse Ox O2 Delivery O2 Flow Rate FiO2 06/27/17 12:00 97.4 89 20 150/84 (106) 96 06/27/17 11:21 96 21 06/27/17 08:00 Room Air 06/27/17 08:00 97.8 87 20 138/84 (102) 96 06/27/17 04:00 Room Air 06/27/17 04:00 97.7 94 16 141/86 (104) 97 06/27/17 00:00 97.4 87 16 153/87 (109) 100 06/27/17 00:00 Room Air 06/26/17 20:00 97.3 96 16 153/87 (109) 100 06/26/17 20:00 Room Air 10/2/17 17:44 98.0 06/26/17 16:00 98.0 86 17 136/84 (101) 96 . Laboratory Tests Test 06/26/17 04:56 White Blood Count 6.2 TH/MM3 Red Blood Count 3.64 MIL/MM3 Hemoglobin 11.5 GM/DL Hematocrit 34.2 % Mean Corpuscular Volume 93.8 FL Mean Corpuscular Hemoglobin 31.6 PG Mean Corpuscular Hemoglobin Concent 33.7 % Red Cell Distribution Width 14.5 % Platelet Count 121 TH/MM3 Mean Platelet Volume 11.4 FL Neutrophils (%) (Auto) 31.9 % Lymphocytes (%) (Auto) 47.1 % Monocytes (%) (Auto) 18.9 % Eosinophils (%) (Auto) 1.3 % Basophils (%) (Auto) 0.8 % Neutrophils # (Auto) 2.0 TH/MM3 Lymphocytes # (Auto) 2.9 TH/MM3 Monocytes # (Auto) 1.2 TH/MM3 Eosinophils # (Auto) 0.1 TH/MM3 Basophils # (Auto) 0.1 TH/MM3 CBC Comment AUTO DIFF Differential Total Cells Counted 100 Neutrophils % (Manual) 46 % Lymphocytes % 45 % Monocytes % 9 % Neutrophils # (Manual) 2.9 TH/MM3 Differential Comment FINAL DIFF MANUAL Platelet Estimate LOW Platelet Morphology Comment NORMAL Red Cell Morphology Comment NORMAL Laboratory Tests Test 06/26/17 04:56 06/27/17 08:45 Blood Urea Nitrogen 15 MG/DL 13 MG/DL Creatinine 0.79 MG/DL 0.81 MG/DL Random Glucose 84 MG/DL 82 MG/DL Total Protein 6.6 GM/DL 7.3 GM/DL Albumin 2.8 GM/DL 3.3 GM/DL Calcium Level 8.0 MG/DL 8.3 MG/DL Phosphorus Level 2.3 MG/DL Magnesium Level 2.2 MG/DL Alkaline Phosphatase 127 U/L 129 U/L Aspartate Amino Transf (AST/SGOT) 110 U/L 234 U/L Alanine Aminotransferase (ALT/SGPT) 115 U/L 227 U/L Total Bilirubin 0.6 MG/DL 0.6 MG/DL Sodium Level 135 MEQ/L 139 MEQ/L Potassium Level 3.4 MEQ/L 3.4 MEQ/L Chloride Level 100 MEQ/L 104 MEQ/L Carbon Dioxide Level 27.2 MEQ/L 27.1 MEQ/L Anion Gap 8 MEQ/L 8 MEQ/L Estimat Glomerular Filtration Rate 113 ML/MIN 110 ML/MIN Imaging Last Impressions Chest X-Ray 06/23/17 0339 Signed Impressions: Service Date/Time: Friday, June 23, 2017 03:51 - CONCLUSION: No acute disease. Tim Foster MD Neck CT 06/23/17 0000 Signed Impressions: Service Date/Time: Friday, June 23, 2017 19:27 - CONCLUSION: 1. No evidence of abscess. 2. Shotty nonspecific lymph nodes. Please see above. Pan Weber MD Head CT 06/23/17 0000 Signed Impressions: Service Date/Time: Friday, June 23, 2017 19:23 - CONCLUSION: No intracranial abnormality demonstrated. Mild ethmoid sinus disease. Pan Weber MD Chest CT 06/23/17 0000 Signed Impressions: Service Date/Time: Friday, June 23, 2017 19:27 - CONCLUSION: 1. Negative noncontrast CT of the chest. 2. Liver is mildly fatty infiltrated and is probably mildly enlarged. 3. Dextroconvex curvature of the thoracic spine. Pan Weber MD Abdomen/Pelvis CT 06/23/17 0000 Signed Impressions: Service Date/Time: Friday, June 23, 2017 06:48 - CONCLUSION: Small hypodensity within the posterior spleen probably of no clinical significance. There are a few tiny mesenteric lymph nodes and one 2.3 x 3.1 cm periportal lymph node. There is some minimal stranding around the second part of the duodenum correlate for peptic ulcer disease. No abscess identified Vick Russell MD Physical Exam GENERAL: Obese well-developed patient, in no apparent distress. SKIN: No rashes, ecchymoses or lesions. Cool and dry. HEAD: Atraumatic. Normocephalic. No temporal or scalp tenderness. EYES: Pupils equal round and reactive. Extraocular motions intact. No scleral icterus. No injection or drainage. ENT: Nose without bleeding, purulent drainage or septal hematoma. Throat without erythema, tonsillar hypertrophy or exudate. Uvula midline. Airway patent. NECK: Trachea midline. Supple, nontender, no meningeal signs. CARDIOVASCULAR: Regular rate and rhythm without murmurs, gallops, or rubs. RESPIRATORY: Clear to auscultation. Breath sounds equal bilaterally. No wheezes , rales, or rhonchi. GASTROINTESTINAL: Abdomen soft, non-tender, nondistended. MUSCULOSKELETAL: Extremities without clubbing, cyanosis, or edema. NEUROLOGICAL: Awake and alert. Cranial nerves II through XII intact. Motor and sensory grossly within normal limits. Five out of 5 muscle strength in all muscle groups. Normal speech. Psych cooperative, smiling today. IV line sites with no e.o infection. Assessment & Plan Remarks SIRS possible Severe Sepsis (fever, leucopenia, elevated lactic acid, meningitis ) Persistent fever ? Meningoencephalitis (fever, headache, Neck stiffness, Cold sore (HSV) in mouth. Atypical pneumonia Abnormal LFTs Leucopenia and thrombocytopenia: meds, sepsis. Recs Continue Acyclovir oral. Continue augmentin Follow cultures Follow clinically. Abnormal LFTs can be from sepsis, sulfasalazine or fatty liver related. Due to increasing trend will get GI involved, check US abdomen. Overall from ID perspective very much improved and ready for discharge but increasing LFT trend remains a concern. d/w . Harriett Ulloa MD Jun 27, 2017 15:12
--- NOTE | 2017-06-27 16:47 | HHI.GIFU ---
Subjective Remarks This is a 32 yo male with hx gouty arthritis, HTN who presented for recurring fevers starting a week and a half ago. His fevers got as high as 104. he did have some sinus pressure at that time as well. GI has been consulted for elevated LFTs which seem to be increasing. He has been treated during this admission with acyclovir, abx per ID. He taks allopurinol for gout. No significant history of ETOH consumption, no illicit drug use. Denies n/v, abd pain, jaundice, diarrhea, blood in stool, tarry stool, sick contacts. No hx of problems with liver, gallbladder, pancreas. He was taking sulfasalazine and that was stopped d/t poss s/e of fevers. (Katya Rivera) Objective Vitals I&O Vital Signs Date Time Temp Pulse Resp B/P (MAP) Pulse Ox O2 Delivery O2 Flow Rate FiO2 06/27/17 12:00 97.4 89 20 150/84 (106) 96 06/27/17 11:21 96 21 06/27/17 08:00 Room Air 06/27/17 08:00 97.8 87 20 138/84 (102) 96 06/27/17 04:00 Room Air 06/27/17 04:00 97.7 94 16 141/86 (104) 97 06/27/17 00:00 97.4 87 16 153/87 (109) 100 06/27/17 00:00 Room Air 06/26/17 20:00 97.3 96 16 153/87 (109) 100 06/26/17 20:00 Room Air 06/26/17 17:44 98.0 I/O 06/26/17 06/26/17 06/26/17 06/27/17 06/27/17 06/27/17 07:00 15:00 23:00 07:00 15:00 23:00 Intake Total 960 ml Output Total 600 ml 1150 ml 700 ml Balance -600 ml -190 ml -700 ml Intake Oral 960 ml Output Urine Total 600 ml 1150 ml 700 ml # Voids 4 # Bowel Movements 2 Laboratory Laboratory Tests Test 06/27/17 08:45 Blood Urea Nitrogen 13 Creatinine 0.81 Random Glucose 82 Total Protein 7.3 Albumin 3.3 Calcium Level 8.3 Alkaline Phosphatase 129 Aspartate Amino Transf (AST/SGOT) 234 Alanine Aminotransferase (ALT/SGPT) 227 Total Bilirubin 0.6 Sodium Level 139 Potassium Level 3.4 Chloride Level 104 Carbon Dioxide Level 27.1 Anion Gap 8 Estimat Glomerular Filtration Rate 110 Date/Time Source Procedure Growth Status 06/23/17 09:30 Blood Peripheral Aerobic Blood Culture - Preliminary NO GROWTH IN 4 DAYS Resulted 06/23/17 09:30 Blood Peripheral Anaerobic Blood Culture - Preliminary NO GROWTH IN 4 DAYS Resulted 06/23/17 15:20 Nasal Aspirate Influenza Types A,B Antigen (ELMER) - Final NEGATIVE FOR FLU A AND B ANTIGEN.... Complete Imaging Last Impressions Chest X-Ray 06/23/17 0339 Signed Impressions: Service Date/Time: Friday, June 23, 2017 03:51 - CONCLUSION: No acute disease. Tim Foster MD Neck CT 06/23/17 0000 Signed Impressions: Service Date/Time: Friday, June 23, 2017 19:27 - CONCLUSION: 1. No evidence of abscess. 2. Shotty nonspecific lymph nodes. Please see above. Pan Weber MD Head CT 06/23/17 0000 Signed Impressions: Service Date/Time: Friday, June 23, 2017 19:23 - CONCLUSION: No intracranial abnormality demonstrated. Mild ethmoid sinus disease. Pan Weber MD Chest CT 06/23/17 0000 Signed Impressions: Service Date/Time: Friday, June 23, 2017 19:27 - CONCLUSION: 1. Negative noncontrast CT of the chest. 2. Liver is mildly fatty infiltrated and is probably mildly enlarged. 3. Dextroconvex curvature of the thoracic spine. Pan Weber MD Abdomen/Pelvis CT 06/23/17 0000 Signed Impressions: Service Date/Time: Friday, June 23, 2017 06:48 - CONCLUSION: Small hypodensity within the posterior spleen probably of no clinical significance. There are a few tiny mesenteric lymph nodes and one 2.3 x 3.1 cm periportal lymph node. There is some minimal stranding around the second part of the duodenum correlate for peptic ulcer disease. No abscess identified Vick Russell MD Physical Exam HEENT: PERRL; normocephalic;no jaundice. bilat conjunctival hemorrhage CHEST: CTA CARDIAC: RRR ABDOMEN: Soft, nondistended, nontender; no hepatosplenomegaly; bowel sounds are present in all four quadrants. EXTREMITIES: No clubbing, cyanosis, or edema. SKIN: Normal; no rash; no jaundice. DENTAL THERAPIST: No focal deficits; alert and oriented times three. (Katya Rivera) Assessment and Plan Plan ASSESSMENT - elevated LFTs - mildly elevated on admission have have increased except for Tbil which has gone down. hep panel neg, mono neg, CMV neg. APAP 3.6. ESTHER neg. denies significant ETOH, iillicit drug use. Takes allopurinol. Was on acyclovir this admission. could be drug related or d/t sepsis, will get rest of w/u to r/o other causes. US pending. - fevers, sepsis, per ID, improved PLAN - AFP, ceruloplasmin, a1 antitrypsin, ASMA, AMA - iron studies - continue to monitor LFTs - supportive care - await US - further recs to follow This pt seen by myself and Dr Muro and this note is written on her behalf (Katya Rivera) Physician Comments seen, examined agree with above fu labs and us if negative consider egd, eus if lfts still elevated (Yuliana Muro MD) Katya Rivera Jun 27, 2017 16:46 Yuliana Muro MD Jun 28, 2017 10:38
--- NOTE | 2017-06-27 20:10 | RADRPT ---
EXAM DATE/TIME: 06/27/2017 19:24 [facility] COMPARISON: No previous studies available for comparison. INDICATIONS : Increased lab values. MEDICAL HISTORY : Hypertension. Arthritis. Gout. SURGICAL HISTORY : Orthopedic surgery, left elbow. Neck injection. Ablation, lower back. ENCOUNTER: Initial ACUITY: 1 day PAIN SCORE: 4/10 LOCATION: Abdomen. MEASUREMENTS: LIVER: 22.0 cm length COMMON DUCT: 4 mm RIGHT KIDNEY: 11.4 x 5.7 x 5.3 cm SPLEEN: 14.4 cm length FINDINGS: LIVER: The liver is enlarged and echogenic. No focal hepatic lesions are seen. COMMON DUCT: No intraluminal mass or stone visualized. GALLBLADDER: Contains no stones, demonstrates no wall thickening or pericholecystic fluid. PANCREAS: The visualized portions are within normal limits. RIGHT KIDNEY: No hydronephrosis, stone or mass. SPLEEN: The spleen is enlarged. No focal splenic lesion is seen. CONCLUSION: Hepatosplenomegaly with suspected hepatic steatosis. Pan You MD on June 27, 2017 at 20:06 Board Certified Radiologist. This report was verified electronically.
[2017-06-27] MEDS: LATANOPROST 0.005% OPHT SOLN 2.5 ML BTL EACH EYE SCH (21:08)
[2017-06-28] VITALS (7 sets, daily range): BP systolic 134–148; BP diastolic 77–89; PULSE 88–104; RESP 18–20; TEMP 97.2–98.2; O2SAT 96–100
[2017-06-28 03:51] LABS: CD4/CD8 RATIO 0.4 (0.86-5.00)
[2017-06-28] MEDS: ACYCLOVIR 200 MG CAP PO SCH ×2 (05:06→13:25)
[2017-06-28] MEDS: LOSARTAN 50 MG TAB PO SCH (08:25)
[2017-06-28] MEDS: ALLOPURINOL 300 MG TAB PO SCH (08:25)
[2017-06-28] MEDS: PANTOPRAZOLE SOD 40 MG DELAYED RELEASE TAB PO SCH (08:25)
[2017-06-28] MEDS: METHYLPHENIDATE HCL 10 MG EXTENDED RELEASE TAB PO SCH (08:26)
[2017-06-28] MEDS: LORATADINE/PSEUDOEPHEDRINE 5 MG/120 MG TAB PO SCH ×2 (08:26→20:53)
[2017-06-28] MEDS: CETIRIZINE HCL 10 MG TAB PO SCH (08:26)
[2017-06-28] MEDS: TRIAMTERENE/HCTZ 37.5 MG/25 MG TAB PO SCH (08:26)
[2017-06-28] MEDS: AMOXICILLIN/CLAVULANATE K 875 MG TAB PO SCH (08:26)
[2017-06-28] MEDS: SODIUM CHLORIDE 0.9% FLUSH 10 ML FLUSH IV FLUSH SCH ×2 (08:27→20:54)
[2017-06-28 08:47] LABS: AUTOMATED NEUTROPHIL # 2.9 TH/MM3 (1.8-7.7); BASOPHIL % 0.3 % (0.0-2.0); EOSINOPHIL # 0.1 TH/MM3 (0-0.4); EOSINOPHIL % 0.6 % (0.0-4.0); HEMATOCRIT 39.3 % (39.0-51.0); HEMO FLAGS DIFF FINAL; LYMPH % 53.8 % (9.0-44.0); MEAN CELL VOLUME 93.2 FL (80.0-100.0); MEAN CORPUSCULAR HEMOGLOBIN 31.2 PG (27.0-34.0); MEAN CORPUSCULAR HGB CONC 33.4 % (32.0-36.0); MONO % 13.4 % (0.0-8.0); NEUT % 31.9 % (16.0-70.0); PLATELET COUNT 282 TH/MM3 (150-450); RED BLOOD COUNT 4.22 MIL/MM3 (4.50-5.90); RED CELL DISTRIBUTION WIDTH 14.5 % (11.6-17.2); WHITE BLOOD COUNT 9.2 TH/MM3 (4.0-11.0)
[2017-06-28 09:22] LABS: ALKALINE PHOSPHATASE 133 U/L (45-117); FERRITIN 782 NG/ML (26-388); TOTAL BILIRUBIN ADULT 0.6 MG/DL (0.2-1.0)
[2017-06-28 09:32] LABS: ALT (GPT) 249 U/L (12-78); ANION GAP 8 MEQ/L (5-15); AST (GOT) 197 U/L (15-37); BICARBONATE 26.1 MEQ/L (21.0-32.0); BLOOD UREA NITROGEN 10 MG/DL (7-18); CHLORIDE 104 MEQ/L (98-107); GLOMERULAR FILTRATION RATE 116 ML/MIN (>89); POTASSIUM 4.1 MEQ/L (3.5-5.1); SODIUM (NA) 138 MEQ/L (136-145)
--- NOTE | 2017-06-28 12:46 | HHI.GIFU ---
Subjective Remarks Resting in bed eating watermelon. Denies any abdominal pain, but has mild abdominal tenderness in RUQ on exam- very mild. No n/v. Tolerating diet. (Haylie Glez) Objective Vitals I&O Vital Signs Date Time Temp Pulse Resp B/P (MAP) Pulse Ox O2 Delivery O2 Flow Rate FiO2 06/28/17 10:58 96 Nasal Cannula 2.00 06/28/17 08:00 97.5 88 20 145/79 (101) 96 06/28/17 08:00 Room Air 06/28/17 04:00 98.0 94 18 134/77 (96) 96 06/27/17 20:00 96.8 92 18 138/80 (99) 99 06/27/17 19:00 96 Nasal Cannula 06/27/17 18:26 96 21 06/27/17 16:00 96.8 91 20 142/90 (107) 97 I/O 06/27/17 06/27/17 06/27/17 06/28/17 06/28/17 06/28/17 07:00 15:00 23:00 07:00 15:00 23:00 Intake Total 600 ml Output Total 700 ml 400 ml Balance -700 ml 600 ml -400 ml Intake Oral 600 ml Output Urine Total 700 ml 400 ml # Voids 4 Laboratory Laboratory Tests Test 06/28/17 07:45 White Blood Count 9.2 Red Blood Count 4.22 Hemoglobin 13.1 Hematocrit 39.3 Mean Corpuscular Volume 93.2 Mean Corpuscular Hemoglobin 31.2 Mean Corpuscular Hemoglobin Concent 33.4 Red Cell Distribution Width 14.5 Platelet Count 282 Mean Platelet Volume 9.4 Neutrophils (%) (Auto) 31.9 Lymphocytes (%) (Auto) 53.8 Monocytes (%) (Auto) 13.4 Eosinophils (%) (Auto) 0.6 Basophils (%) (Auto) 0.3 Neutrophils # (Auto) 2.9 Lymphocytes # (Auto) 5.0 Monocytes # (Auto) 1.2 Eosinophils # (Auto) 0.1 Basophils # (Auto) 0.0 CBC Comment DIFF FINAL Differential Comment Blood Urea Nitrogen 10 Creatinine 0.77 Random Glucose 79 Total Protein 7.2 Albumin 3.2 Calcium Level 8.9 Alkaline Phosphatase 133 Aspartate Amino Transf (AST/SGOT) 197 Alanine Aminotransferase (ALT/SGPT) 249 Total Bilirubin 0.6 Sodium Level 138 Potassium Level 4.1 Chloride Level 104 Carbon Dioxide Level 26.1 Anion Gap 8 Estimat Glomerular Filtration Rate 116 Iron Level 79 Ferritin 782 Tumor Marker Alpha Fetoprotein 4.2 Date/Time Source Procedure Growth Status 06/23/17 09:30 Blood Peripheral Aerobic Blood Culture - Final NO GROWTH IN 5 DAYS Complete 06/23/17 09:30 Blood Peripheral Anaerobic Blood Culture - Final NO GROWTH IN 5 DAYS Complete 06/23/17 15:20 Nasal Aspirate Influenza Types A,B Antigen (ELMER) - Final NEGATIVE FOR FLU A AND B ANTIGEN.... Complete Imaging Last Impressions Liver Ultrasound 06/27/17 0000 Signed Impressions: Service Date/Time: Tuesday, June 27, 2017 19:24 - CONCLUSION: Hepatosplenomegaly with suspected hepatic steatosis. Pan You MD Chest X-Ray 06/23/17 0339 Signed Impressions: Service Date/Time: Friday, June 23, 2017 03:51 - CONCLUSION: No acute disease. Tim Foster MD Neck CT 06/23/17 0000 Signed Impressions: Service Date/Time: Friday, June 23, 2017 19:27 - CONCLUSION: 1. No evidence of abscess. 2. Shotty nonspecific lymph nodes. Please see above. Pan Weber MD Head CT 06/23/17 0000 Signed Impressions: Service Date/Time: Friday, June 23, 2017 19:23 - CONCLUSION: No intracranial abnormality demonstrated. Mild ethmoid sinus disease. Pan Weber MD Chest CT 06/23/17 0000 Signed Impressions: Service Date/Time: Friday, June 23, 2017 19:27 - CONCLUSION: 1. Negative noncontrast CT of the chest. 2. Liver is mildly fatty infiltrated and is probably mildly enlarged. 3. Dextroconvex curvature of the thoracic spine. Pan Weber MD Abdomen/Pelvis CT 06/23/17 0000 Signed Impressions: Service Date/Time: Friday, June 23, 2017 06:48 - CONCLUSION: Small hypodensity within the posterior spleen probably of no clinical significance. There are a few tiny mesenteric lymph nodes and one 2.3 x 3.1 cm periportal lymph node. There is some minimal stranding around the second part of the duodenum correlate for peptic ulcer disease. No abscess identified Vick Russell MD Physical Exam HEENT: Normocephalic;no jaundice. bilat conjunctival hemorrhage CHEST: CTA CARDIAC: RRR ABDOMEN: Soft, mildly bloated, very minimal RUQ tenderness on exam; no hepatosplenomegaly; bowel sounds are present in all four quadrants. EXTREMITIES: No clubbing, cyanosis, or edema. SKIN: Normal; no rash; no jaundice. HVAC TECHNICIAN: No focal deficits; alert and oriented times three. (Haylie Glez [facility]) Assessment and Plan Plan ASSESSMENT - Elevated LFTs, unclear etiology. Denies significant ETOH, iillicit drug use. Takes allopurinol. Was on acyclovir this admission. Small hypodensity within the posterior spleen probably of no clinical significance. There are a few tiny mesenteric lymph nodes and one 2.3 x 3.1 cm periportal lymph node. There is some minimal stranding around the second part of the duodenum correlate for peptic ulcer disease. No abscess identified. US (06/27/17)--- -> Hepatosplenomegaly with suspected hepatic steatosis. CMV negative, Hepatitis profile negative, Monoscreen negative, AMA pending, ASMA pending, Celiac pending, AFP 4.2, Alpha 1 Antitrypsin pending, Ceruloplasmin pending. Ferritin 782. Will add Iron Saturation and ESTHER. Of note, pt had been on levaquin, sulfasalazine as outpatient. Getting Acyclovir/ Augmentin here. ? Drug induced hepatitis on underlying fatty liver disease vs. autoimmune hepatitis vs. most likely combination of infection, drug induced hepatitis on underlying fatty liver dz. T. Bili 0.6, AST 197, ALT 249, Alk Phosph 133. ? Sulfasalazine/Levaquin/Acyclovir could all be culprits for drug induced injury - Mesenteric adenopathy, unclear signficance. - Anemia. Improved. - SIRS, possible sepsis. ? Menningoencephalitis, PNA. Abx per ID. - RA, Gout, HTN per attending. PLAN - Low fat diet - Iron saturation - ESTHER - Lipid panel to check triglycerides - Monitor LFTs - Supportive care - ? Consider liver biopsy if no improvement - ? Consider EUS for adenopathy - Further recommendations to follow based on results of above - Pt seen and examined by Dr. Muro and myself and this note is written on her behalf (Haylie Glez) Physician Comments seen, examined agree with above ok to dc home in am if stable lfts fu office 1-2 weeks await blood work if negative consider liver biopsy , eus /egd (Yuilana Muro MD) Haylie Glez Jun 28, 2017 12:46 Yuliana Muro MD Jun 28, 2017 18:48
[2017-06-28] MEDS: ENOXAPARIN SODIUM 40 MG/0.4 ML SYRINGE SQ SCH (13:24)
[2017-06-28] MEDS: TIMOLOL MALEATE 0.5% OPHT SOLN 5 ML BTL EACH EYE SCH (13:25)
--- NOTE | 2017-06-28 14:07 | HHI.PR ---
Subjective Remarks Follow-up elevated LFTs. Patient has no complaints at this time. Denies abdominal pain, nausea, vomiting, dyspnea. Does report cough that is improved with Tessalon Perles. Objective Vitals Vital Signs Date Time Temp Pulse Resp B/P (MAP) Pulse Ox O2 Delivery O2 Flow Rate FiO2 06/28/17 12:00 97.4 101 20 141/77 (98) 100 06/28/17 10:58 96 Nasal Cannula 2.00 06/28/17 08:00 97.5 88 20 145/79 (101) 96 06/28/17 08:00 Room Air 06/28/17 04:00 98.0 94 18 134/77 (96) 96 06/27/17 20:00 96.8 92 18 138/80 (99) 99 06/27/17 19:00 96 Nasal Cannula 06/27/17 18:26 96 21 06/27/17 16:00 96.8 91 20 142/90 (107) 97 I/O 06/27/17 06/27/17 06/27/17 06/28/17 06/28/17 06/28/17 07:00 15:00 23:00 07:00 15:00 23:00 Intake Total 600 ml Output Total 700 ml 400 ml Balance -700 ml 600 ml -400 ml Intake Oral 600 ml Output Urine Total 700 ml 400 ml # Voids 4 Result Diagram: 06/28/17 0745 06/28/17 0745 Imaging Last Impressions Liver Ultrasound 06/27/17 0000 Signed Impressions: Service Date/Time: Tuesday, June 27, 2017 19:24 - CONCLUSION: Hepatosplenomegaly with suspected hepatic steatosis. Pan You MD Chest X-Ray 06/23/17 0339 Signed Impressions: Service Date/Time: Friday, June 23, 2017 03:51 - CONCLUSION: No acute disease. Tim Foster MD Neck CT 06/23/17 0000 Signed Impressions: Service Date/Time: Friday, June 23, 2017 19:27 - CONCLUSION: 1. No evidence of abscess. 2. Shotty nonspecific lymph nodes. Please see above. Pan Weber MD Head CT 06/23/17 0000 Signed Impressions: Service Date/Time: Friday, June 23, 2017 19:23 - CONCLUSION: No intracranial abnormality demonstrated. Mild ethmoid sinus disease. Pan Weber MD Chest CT 06/23/17 0000 Signed Impressions: Service Date/Time: Friday, June 23, 2017 19:27 - CONCLUSION: 1. Negative noncontrast CT of the chest. 2. Liver is mildly fatty infiltrated and is probably mildly enlarged. 3. Dextroconvex curvature of the thoracic spine. Pan Weber MD Abdomen/Pelvis CT 06/23/17 0000 Signed Impressions: Service Date/Time: Friday, June 23, 2017 06:48 - CONCLUSION: Small hypodensity within the posterior spleen probably of no clinical significance. There are a few tiny mesenteric lymph nodes and one 2.3 x 3.1 cm periportal lymph node. There is some minimal stranding around the second part of the duodenum correlate for peptic ulcer disease. No abscess identified Vick Russell MD Objective Remarks General: No acute distress. Heart: Regular rate and rhythm. No murmur. Lungs: Clear to auscultation bilaterally. No wheezes, rales, or rhonchi. Breathing is nonlabored. Abdomen: Soft, nontender, nondistended. Extremities: No lower extremity edema. Psych: Alert and oriented. Procedures None Urinary Catheter: No Vascular Central Line Catheter: No A/P Problem List: (1) Fever and chills ICD Code: R50.9 - Fever, unspecified (2) Viral syndrome ICD Code: B34.9 - Viral infection, unspecified (3) Sepsis ICD Code: A41.9 - Sepsis, unspecified organism Status: Acute (4) Febrile illness, acute ICD Code: R50.9 - Fever, unspecified Status: Acute (5) Thrombocytopenia ICD Code: D69.6 - Thrombocytopenia, unspecified (6) Elevated LFTs ICD Code: R79.89 - Other specified abnormal findings of blood chemistry Assessment and Plan 1. Sepsis, pneumonia: Appreciate infectious disease recommendations. Discussed with Dr. Ulloa. Continue oral Acyclovir, Augmentin. 2. Hypokalemia: Improved. 3. Hypertension: Continue Losartan, Maxzide. 4. GI prophylaxis: Protonix. 5. DVT prophylaxis: Lovenox. 6. Elevated LFTs: Liver ultrasound shows hepatosplenomegaly and hepatic steatosis. Appreciate GI recommendations. Follow LFTs. Discharge Planning Pending GI evaluation, elevated LFTs. Problem Qualifiers (1) Sepsis: Qualified Codes: A41.9 - Sepsis, unspecified organism Olayinka Aviles MD Jun 28, 2017 14:07
[2017-06-28 15:20] LABS: TRANSFERRIN IRON PROFILE 214 MG/DL (200-360)
[2017-06-28 15:22] LABS: HDL CHOLESTEROL 15.4 MG/DL (40.0-60.0); LDL CHOLESTEROL 31 MG/DL (0-99)
[2017-06-28] MEDS: LATANOPROST 0.005% OPHT SOLN 2.5 ML BTL EACH EYE SCH (20:54)
[2017-06-28] MEDS: BENZONATATE 100 MG CAP PO PRN (22:04)
[2017-06-29 00:45] VITALS: BP 118/64; PULSE 64; RESP 16; TEMP 98.1; O2SAT 98
[2017-06-29 06:00] VITALS: BP 120/90; PULSE 69; RESP 17; TEMP 98.8; O2SAT 96
[2017-06-29 08:00] VITALS: BP 133/75; PULSE 95; RESP 20; TEMP 96.4; O2SAT 97
[2017-06-29] MEDS: TRIAMTERENE/HCTZ 37.5 MG/25 MG TAB PO SCH (08:08)
[2017-06-29] MEDS: METHYLPHENIDATE HCL 10 MG EXTENDED RELEASE TAB PO SCH (08:08)
[2017-06-29] MEDS: LORATADINE/PSEUDOEPHEDRINE 5 MG/120 MG TAB PO SCH (08:08)
[2017-06-29] MEDS: CETIRIZINE HCL 10 MG TAB PO SCH (08:09)
[2017-06-29] MEDS: ALLOPURINOL 300 MG TAB PO SCH (08:09)
[2017-06-29] MEDS: LOSARTAN 50 MG TAB PO SCH (08:09)
[2017-06-29] MEDS: SODIUM CHLORIDE 0.9% FLUSH 10 ML FLUSH IV FLUSH SCH (08:10)
[2017-06-29] MEDS: TIMOLOL MALEATE 0.5% OPHT SOLN 5 ML BTL EACH EYE SCH (08:11)
[2017-06-29] MEDS: PANTOPRAZOLE SOD 40 MG DELAYED RELEASE TAB PO SCH (08:11)
[2017-06-29 09:12] LABS: INDIRECT BILIRUBIN 0.3 MG/DL (0.0-0.8); TOTAL BILIRUBIN ADULT 0.5 MG/DL (0.2-1.0)
[2017-06-29] MEDS ORDERED: BENZ100 PO (11:34)
--- NOTE | 2017-06-29 11:35 | HHI.DCPOC ---
Discharge Care Plan Diagnosis: (1) Elevated LFTs (2) Thrombocytopenia (3) Fever and chills (4) Viral syndrome Goals to Promote Your Health * To prevent worsening of your condition and complications * To maintain your health at the optimal level Directions to Meet Your Goals Take your medications as prescribed Follow your dietary instruction Follow activity as directed Keep your appointments as scheduled Take your immunizations and boosters as scheduled If your symptoms worsen call your PCP, if no PCP go to Urgent Care Center or Emergency Room Smoking is Dangerous to Your Health. Avoid second hand smoke Call the 24-hour hour crisis hotline for domestic abuse at Olayinka Aviles MD Jun 29, 2017 11:35
--- NOTE | 2017-06-29 11:37 | HHI.DS ---
Discharge Summary Admission Date Jun 23, 2017 at 06:47 Discharge Date: Jun 29, 2017 Admitting Diagnosis sepsis/febrile illness (1) Fever and chills ICD Code: R50.9 - Fever, unspecified (2) Viral syndrome ICD Code: B34.9 - Viral infection, unspecified (3) Sepsis ICD Code: A41.9 - Sepsis, unspecified organism Status: Acute (4) Febrile illness, acute ICD Code: R50.9 - Fever, unspecified Status: Acute (5) Thrombocytopenia ICD Code: D69.6 - Thrombocytopenia, unspecified (6) Elevated LFTs ICD Code: R79.89 - Other specified abnormal findings of blood chemistry Procedures None Brief History - From Admission 32-year-old male presents to the emergency department by private transportation the care of his mother for evaluation of fever. Patient states approximately 6 days ago he started noticing fever and chills. Patient states he felt well 7 days ago except for some mild sinus pressure. Patient was seen in the emergency department and diagnosed with a viral syndrome and told to take over- the-counter medications for symptomatic relief. Patient states he continued to have symptoms so he went to urgent care and was diagnosed with a possible upper respiratory infection. Patient was placed on Levaquin and took 2 days of Levaquin symptoms have persisted and continues to have fever. Patient denies headache visual disturbance mild sinus pressure no sore throat or drainage no earache no neck pain no neck stiffness no shortness of breath no chest pain no productive cough no wheezing mild nausea no vomiting no abdominal pain no diarrhea no dysuria no frequency no urgency no hematuria no skin rash no joint pain and no joint swelling. The patient rates his pain 0/10 in intensity. Patient does have a history of rheumatoid arthritis and was on sulfasalazine and was told to discontinue this medication as it may be responsible for his temperature elevation. Patient has not been taking sulfasalazine. Patient also has history of gouty arthritis and hypertension. No other family members are similar symptoms. Patient's last acetaminophen was at 8 PM last evening. Was seen in the emergency department and of course recommended admission started on vancomycin and Zosyn CBC/BMP: 06/28/17 0745 06/28/17 0745 Significant Findings Laboratory Tests Test 06/27/17 08:45 06/28/17 07:45 06/29/17 08:06 Albumin 3.3 GM/DL (3.4-5.0) 3.2 GM/DL (3.4-5.0) Calcium Level 8.3 MG/DL (8.5-10.1) Alkaline Phosphatase 129 U/L (45-117) 133 U/L (45-117) 130 U/L (45-117) Aspartate Amino Transf (AST/SGOT) 234 U/L (15-37) 197 U/L (15-37) 121 U/L (15-37) Alanine Aminotransferase (ALT/SGPT) 227 U/L (12-78) 249 U/L (12-78) 246 U/L (12-78) Potassium Level 3.4 MEQ/L (3.5-5.1) Red Blood Count 4.22 MIL/MM3 (4.50-5.90) Lymphocytes (%) (Auto) 53.8 % (9.0-44.0) Monocytes (%) (Auto) 13.4 % (0.0-8.0) Lymphocytes # (Auto) 5.0 TH/MM3 (1.0-4.8) Monocytes # (Auto) 1.2 TH/MM3 (0-0.9) Ferritin 782 NG/ML (26-388) Triglycerides Level 324 MG/DL (42-150) Cholesterol Level 111 MG/DL (120-200) HDL Cholesterol 15.4 MG/DL (40.0-60.0) Imaging Last Impressions Liver Ultrasound 06/27/17 0000 Signed Impressions: Service Date/Time: Tuesday, June 27, 2017 19:24 - CONCLUSION: Hepatosplenomegaly with suspected hepatic steatosis. Pan You MD Chest X-Ray 06/23/17 0339 Signed Impressions: Service Date/Time: Friday, June 23, 2017 03:51 - CONCLUSION: No acute disease. Tim Foster MD Neck CT 06/23/17 0000 Signed Impressions: Service Date/Time: Friday, June 23, 2017 19:27 - CONCLUSION: 1. No evidence of abscess. 2. Shotty nonspecific lymph nodes. Please see above. Pan Weber MD Head CT 06/23/17 0000 Signed Impressions: Service Date/Time: Friday, June 23, 2017 19:23 - CONCLUSION: No intracranial abnormality demonstrated. Mild ethmoid sinus disease. Pan Weber MD Chest CT 06/23/17 0000 Signed Impressions: Service Date/Time: Friday, June 23, 2017 19:27 - CONCLUSION: 1. Negative noncontrast CT of the chest. 2. Liver is mildly fatty infiltrated and is probably mildly enlarged. 3. Dextroconvex curvature of the thoracic spine. Pan Weber MD Abdomen/Pelvis CT 06/23/17 0000 Signed Impressions: Service Date/Time: Friday, June 23, 2017 06:48 - CONCLUSION: Small hypodensity within the posterior spleen probably of no clinical significance. There are a few tiny mesenteric lymph nodes and one 2.3 x 3.1 cm periportal lymph node. There is some minimal stranding around the second part of the duodenum correlate for peptic ulcer disease. No abscess identified Vick Russell MD PE at Discharge General: No acute distress. Heart: Regular rate and rhythm. No murmur. Lungs: Clear to auscultation bilaterally. No wheezes, rales, or rhonchi. Breathing is nonlabored. Abdomen: Soft, nontender, nondistended. Extremities: No lower extremity edema. Psych: Alert and oriented. Pt update on day of discharge The patient has no complaints at this time. He wants to go home today. Denies chest pain, dyspnea. Cough is much improved. Denies abdominal pain, nausea, vomiting. Hospital Course The patient was admitted for further evaluation and management of suspected viral syndrome. He was started on IV antibiotics. Infectious disease was consulted and antibiotics were adjusted. The patient was transitioned to oral antibiotics. He was noted to have elevated LFTs. Liver ultrasound showed steatosis and hepatosplenomegaly. Gastroenterology was consulted. Further monitoring of LFTs showed them to be stable, but elevated. He was taken off all antibiotics. He remained afebrile. He was cleared for discharge by infectious disease and gastroenterology. Pt Condition on Discharge: Stable Discharge Disposition: Discharge Home Discharge Time: > 30 minutes Discharge Instructions DIET: Follow Instructions for: Heart Healthy Diet Activities you can perform: Regular-No Restrictions Follow up Referrals: Gastroenterology - 2 Weeks with Yuliana Muro MD PCP Follow-up - 1 Week New Medications: Benzonatate (Tessalon Perles) 100 Mg Cap 100 MG PO TID PRN for cough, #30 CAP 0 Refills Continued Medications: Allopurinol (Allopurinol) 300 Mg Tab 300 MG PO DAILY for Gout, #30 TAB 0 Refills Losartan (Losartan) 50 Mg Tab 50 MG PO DAILY for Blood Pressure Management, #30 TAB 0 Refills Methylphenidate CD 24 HR (Methylphenidate CD 24 HR) 40 Mg Capcr 40 MG PO DAILY for Attention Deficit Disorder, #30 CAP 0 Refills Triamterene-Hydrochlorothiazide (Triamterene-Hydrochlorothiazide) 37.5-25 Mg Tab 1 TAB PO DAILY, #30 TAB 0 Refills Discontinued Medications: Levofloxacin (Levofloxacin) 500 Mg Tablet 500 MG PO DAILY for Infection, TAB 0 Refills Oseltamivir (Tamiflu) 75 Mg Cap 75 MG PO BID for Mgmt Viral Infection, CAP 0 Refills Sulfasalazine (Sulfasalazine) 500 Mg Tab 1000 MG PO BID, #240 TAB 0 Refills Olayinka Aviles MD Jun 29, 2017 11:37
[2017-06-29 12:00] VITALS: BP 130/82; PULSE 94; RESP 20; TEMP 98.3; O2SAT 96
[2017-06-30 03:52] LABS: IGA SERUM 259 mg/dL (81-463)
[2017-06-30 13:53] LABS: TISSUE TRANSGLUTAMINASE AB 4 U/mL (0-4)
[2017-06-30 23:54] LABS: ENDOMYSIAL AB TITER ND (<1:5)
[2017-07-02 03:52] LABS: MITOCHONDRIAL ABS LESS THAN 20.0 U (<=20.0)
== END 2017-06-29 13:00 | disposition home or self-care (01) | DRG 872 ==
LOC: NEPC 02:54 → NEDA 06:47 → N04B 10:46
PROVIDERS: ADMIT Family Medicine; ATTEND Family Medicine
DX: A41.89 Other specified sepsis (principal); D69.6 Thrombocytopenia, unspecified; K76.0 Fatty (change of) liver, not elsewhere classified; B00.2 Herpesviral gingivostomatitis and pharyngotonsillitis; I10 Essential (primary) hypertension; M06.9 Rheumatoid arthritis, unspecified; M1A.9XX0 Chronic gout, unspecified, without tophus (tophi); E87.6 Hypokalemia; D72.819 Decreased white blood cell count, unspecified; N44.8 Other noninflammatory disorders of the testis; B34.9 Viral infection, unspecified
CPT/HCPCS: 70470; 70491; 71010; 71260; 74177; 76705; 80048; 80053; 80061; 80074; 80076; 80202; 80307; 81001; 82103; 82105; 82390; 82728; 82784; 83036; 83516; 83520; 83540; 83550; 83605; 83690; 83735; 84100; 84155; 84439; 84443; 85007; 85025; 85027; 85610; 85730; 86038; 86140; 86255; 86308; 86355; 86357; 86359; 86360; 86703; 87015; 87040; 87497; 87535; 87801; 87804; 93005; 94150; 94640; 94664; 96361; 96365; 96367; J0133; J0780; J1650; J2405; J2543; J3370; J7030; J7040; J7050; Q9967

== ENCOUNTER → 2017-07-24 | Outpatient (CLI) | payer OTHER ==
[~2017-07-24] MED LIST changes: +BENZ100 PO; -SULF500T3 PO
[2017-07-24 13:25] LABS: AUTOMATED NEUTROPHIL # 6.1 TH/MM3 (1.8-7.7); BASOPHIL # 0.1 TH/MM3 (0-0.2); BASOPHIL % 0.9 % (0.0-2.0); EOSINOPHIL # 0.1 TH/MM3 (0-0.4); HEMATOCRIT 47.7 % (39.0-51.0); HEMO FLAGS DIFF FINAL; LYMPH % 26.6 % (9.0-44.0); LYMPHOCYTE # 2.5 TH/MM3 (1.0-4.8); MEAN CELL VOLUME 92.1 FL (80.0-100.0); MEAN CORPUSCULAR HEMOGLOBIN 31.9 PG (27.0-34.0); MEAN CORPUSCULAR HGB CONC 34.7 % (32.0-36.0); MONO % 6.8 % (0.0-8.0); NEUT % 64.7 % (16.0-70.0); PLATELET COUNT 245 TH/MM3 (150-450); RED BLOOD COUNT 5.18 MIL/MM3 (4.50-5.90); RED CELL DISTRIBUTION WIDTH 14.3 % (11.6-17.2); WHITE BLOOD COUNT 9.4 TH/MM3 (4.0-11.0)
[2017-07-24 13:44] LABS: ALT (GPT) 101 U/L (12-78); ANION GAP 6 MEQ/L (5-15); AST (GOT) 48 U/L (15-37); BLOOD UREA NITROGEN 7 MG/DL (7-18); CHLORIDE 102 MEQ/L (98-107); GLOMERULAR FILTRATION RATE 91 ML/MIN (>89); GLUCOSE,FASTING 86 MG/DL (74-99); POTASSIUM 4.1 MEQ/L (3.5-5.1); SODIUM (NA) 137 MEQ/L (136-145)
[2017-07-24 13:47] LABS: ALKALINE PHOSPHATASE 109 U/L (45-117); HDL CHOLESTEROL 40.4 MG/DL (40.0-60.0); TOTAL BILIRUBIN ADULT 0.7 MG/DL (0.2-1.0)
[2017-07-26 11:50] LABS: IGA SERUM 155 mg/dL (81-463)
[2017-07-26 13:50] LABS: ENDOMYSIAL AB TITER ND (<1:5); TISSUE TRANSGLUTAMINASE AB LESS THAN 1 U/mL (0-4)
== END ==
LOC: CLAB 12:44
PROVIDERS: ATTEND Internal Medicine Gastroenterology
DX: I10 Essential (primary) hypertension (principal); R74.0 Nonspecific elevation of levels of transaminase and lactic acid dehydrogenase [LDH]; E78.2 Mixed hyperlipidemia; M10.9 Gout, unspecified; R74.8 Abnormal levels of other serum enzymes
CPT/HCPCS: 80053; 80061; 82784; 83516; 83690; 85025

== ENCOUNTER → 2017-09-14 | Outpatient (CLI) | payer OTHER ==
[~2017-09-14] MED LIST changes: -BENZ100 PO; +LATA0.002 EACH EYE; +TIMO0.5S30 EACH EYE
[2017-09-14 13:56] LABS: INDIRECT BILIRUBIN 0.4 MG/DL (0.0-0.8); TOTAL BILIRUBIN ADULT 0.5 MG/DL (0.2-1.0)
== END ==
LOC: CLAB 12:52
PROVIDERS: ATTEND Internal Medicine Gastroenterology
DX: R74.8 Abnormal levels of other serum enzymes (principal)
CPT/HCPCS: 36415; 80076

== ENCOUNTER → 2017-10-12 | Outpatient (CLI) | payer OTHER ==
[~2017-10-12] VITALS: Ht 170.2 cm; Wt 113.6 kg
[~2017-10-12] MED LIST changes: +CHLORHEXIDINE GLUCONATE 2 % 1 PACK (2 CLOTHS) TOPICAL PRN; +DEXTROSE 5%-LACTATED RING INJ 1,000 ML IV SCH; +LACTATED RINGER'S 1000 ML IV PRN; +LIDOCAINE HCL 1% PF 5 ML SYRINGE OTHER ONE; +METH20CA4 PO; +METOPROLOL TARTRATE 25 MG TAB PO PRN; +MIDAZOLAM HCL 2 MG/2 ML VIAL ONE; +POVIDONE IODINE 5% (ANTISEPSIS KIT) 4 APPLICATIONS EACH NARE PRN; +PROPOFOL 200 MG/20 ML AMP IV ONE; +SODIUM CHLORID 0.9% 500 ML IV PRN
[2017-10-12 11:25] VITALS: TEMP 97.6
--- NOTE | 2017-10-12 11:33 | PD.PROCEDR ---
GI Procedure PROCEDURE PERFORMED Endoscopic ultrasound INDICATION FOR PROCEDURE Patient with known history of abdominal lymphadenopathy PROCEDURE: The procedure, risks and benefits were discussed with Mr. Le and informed consent was obtained. Anesthesia sedated him with Diprivan. He was placed in the left lateral decubitus position. Endoscopic ultrasound: The Pentax videoscope was introduced through the oropharynx and advanced to the second portion of the duodenum. FINDINGS: The pancreas was scanned from head to the tail and it was found to be unremarkable and within normal limits it was homogeneous the pancreatic duct also appeared to be unremarkable and within normal limits The gallbladder was seen in the stool appeared to be unremarkable with normal limits Common bile duct also appeared to be unremarkable and within normal limits The ampulla also identified and appeared to be normal No lymphadenopathy was noted ESTIMATED BLOOD LOSS: None SPECIMENS REMOVED: None COMPLICATIONS: None IMPRESSION: Normal abdominal endoscopic ultrasound PLAN: Follow-up in clinic in 4 weeks Michelet Leiva MD Oct 12, 2017 11:33
[2017-10-12 11:59] VITALS: BP 125/80; PULSE 80; RESP 18; O2SAT 98
== END ==
LOC: HEND 08:41
PROVIDERS: ATTEND Internal Medicine Gastroenterology
DX: R93.5 Abnormal findings on diagnostic imaging of other abdominal regions, including retroperitoneum (principal); R74.8 Abnormal levels of other serum enzymes; I10 Essential (primary) hypertension
CPT/HCPCS: 00731; 43259; J2250

== ENCOUNTER → 2017-11-13 | Outpatient (CLI) | payer OTHER ==
[~2017-11-13] MED LIST changes: -CHLORHEXIDINE GLUCONATE 2 % 1 PACK (2 CLOTHS) TOPICAL PRN; -DEXTROSE 5%-LACTATED RING INJ 1,000 ML IV SCH; -LACTATED RINGER'S 1000 ML IV PRN; -LIDOCAINE HCL 1% PF 5 ML SYRINGE OTHER ONE; -METH40CA4 PO; -METOPROLOL TARTRATE 25 MG TAB PO PRN; -MIDAZOLAM HCL 2 MG/2 ML VIAL ONE; -POVIDONE IODINE 5% (ANTISEPSIS KIT) 4 APPLICATIONS EACH NARE PRN; -PROPOFOL 200 MG/20 ML AMP IV ONE; -SODIUM CHLORID 0.9% 500 ML IV PRN
[2017-11-13 13:44] LABS: AUTOMATED NEUTROPHIL # 5.1 TH/MM3 (1.8-7.7); BASOPHIL % 0.5 % (0.0-2.0); EOSINOPHIL # 0.2 TH/MM3 (0-0.4); EOSINOPHIL % 2.1 % (0.0-4.0); HEMATOCRIT 43.6 % (39.0-51.0); HEMOGLOBIN 15.4 GM/DL (13.0-17.0); LYMPH % 26.5 % (9.0-44.0); LYMPHOCYTE # 2.2 TH/MM3 (1.0-4.8); MEAN CELL VOLUME 89.3 FL (80.0-100.0); MEAN CORPUSCULAR HEMOGLOBIN 31.5 PG (27.0-34.0); MEAN CORPUSCULAR HGB CONC 35.3 % (32.0-36.0); MEAN PLATELET VOLUME 9.2 FL (7.0-11.0); MONO % 8.8 % (0.0-8.0); MONOCYTE # 0.7 TH/MM3 (0-0.9); NEUT % 62.1 % (16.0-70.0); PLATELET COUNT 251 TH/MM3 (150-450); RED BLOOD COUNT 4.88 MIL/MM3 (4.50-5.90); RED CELL DISTRIBUTION WIDTH 14.2 % (11.6-17.2); WHITE BLOOD COUNT 8.1 TH/MM3 (4.0-11.0)
[2017-11-13 14:10] LABS: ALBUMIN 4.4 GM/DL (3.4-5.0); BICARBONATE 26.7 MEQ/L (21.0-32.0); BLOOD UREA NITROGEN 6 MG/DL (7-18); CALCIUM 9.4 MG/DL (8.5-10.1); CHLORIDE 106 MEQ/L (98-107); CREATININE 0.88 MG/DL (0.60-1.30); GLOMERULAR FILTRATION RATE 100 ML/MIN (>89); GLUCOSE,FASTING 91 MG/DL (74-99); SODIUM (NA) 139 MEQ/L (136-145)
[2017-11-13 14:11] LABS: AST (GOT) 46 U/L (15-37)
[2017-11-13 14:15] LABS: ALKALINE PHOSPHATASE 100 U/L (45-117); ALT (GPT) 93 U/L (12-78); C-REACTIVE PROTEIN 0.29 MG/DL (0.00-0.30); TOTAL BILIRUBIN ADULT 0.8 MG/DL (0.2-1.0); TOTAL PROTEIN 7.8 GM/DL (6.4-8.2)
== END ==
LOC: CLAB 13:09
PROVIDERS: ATTEND Internal Medicine Gastroenterology
DX: R74.8 Abnormal levels of other serum enzymes (principal); M25.50 Pain in unspecified joint; M10.071 Idiopathic gout, right ankle and foot
CPT/HCPCS: 36415; 80053; 82248; 82550; 85025; 86140

== ENCOUNTER → 2017-11-30 | Outpatient (CLI) | payer OTHER ==
[2017-11-30 13:05] LABS: AUTOMATED NEUTROPHIL # 3.8 TH/MM3 (1.8-7.7); BASOPHIL % 0.2 % (0.0-2.0); EOSINOPHIL # 0.1 TH/MM3 (0-0.4); EOSINOPHIL % 1.8 % (0.0-4.0); HEMATOCRIT 43.9 % (39.0-51.0); LYMPH % 28.9 % (9.0-44.0); LYMPHOCYTE # 1.8 TH/MM3 (1.0-4.8); MEAN CELL VOLUME 90.6 FL (80.0-100.0); MEAN CORPUSCULAR HEMOGLOBIN 32.9 PG (27.0-34.0); MEAN PLATELET VOLUME 9.1 FL (7.0-11.0); MONO % 9.4 % (0.0-8.0); MONOCYTE # 0.6 TH/MM3 (0-0.9); NEUT % 59.7 % (16.0-70.0); PLATELET COUNT 245 TH/MM3 (150-450); RED BLOOD COUNT 4.85 MIL/MM3 (4.50-5.90); RED CELL DISTRIBUTION WIDTH 14.5 % (11.6-17.2); WHITE BLOOD COUNT 6.4 TH/MM3 (4.0-11.0)
[2017-11-30 13:11] LABS: ALBUMIN 4.5 GM/DL (3.4-5.0); ALT (GPT) 74 U/L (12-78); AST (GOT) 33 U/L (15-37); CHOLESTEROL 219 MG/DL (120-200); DIRECT BILIRUBIN ADULT 0.1 MG/DL (0.0-0.2); IRON (FE) 170 MCG/DL (65-175); MEAN CORPUSCULAR HGB CONC 36.3 % (32.0-36.0)
[2017-11-30 13:14] LABS: CHOLESTEROL/ HDL RATIO 6.53 RATIO; HDL CHOLESTEROL 33.5 MG/DL (40.0-60.0); LDL CHOLESTEROL 146 MG/DL (0-99); TRIGLYCERIDES 200 MG/DL (42-150)
[2017-11-30 13:16] LABS: % SATURATION IRON PROFILE 39.7 % (20-50); ALKALINE PHOSPHATASE 93 U/L (45-117); FERRITIN 42 NG/ML (26-388); INDIRECT BILIRUBIN 0.7 MG/DL (0.0-0.8); TOTAL BILIRUBIN ADULT 0.8 MG/DL (0.2-1.0); TOTAL IRON BINDING CAPACITY 428 MCG/DL (250-450); TOTAL PROTEIN 8.3 GM/DL (6.4-8.2)
[2017-11-30 16:32] LABS: HEMOGLOBIN A1C 5.5 % (4.3-6.0)
== END ==
LOC: CLAB 12:03
PROVIDERS: ATTEND Internal Medicine Gastroenterology
DX: I10 Essential (primary) hypertension (principal); E78.2 Mixed hyperlipidemia; M10.9 Gout, unspecified; E11.9 Type 2 diabetes mellitus without complications; R74.8 Abnormal levels of other serum enzymes
CPT/HCPCS: 36415; 80061; 80076; 81256; 82172; 82247; 82728; 82977; 83010; 83036; 83540; 83550; 83883; 84460; 84550; 85025; 86317; 86708